=== PATIENT | female | born 1945 | race Caucasian/White ===

== ENCOUNTER 2017-03-18 11:48 | Emergency (ER) | payer BC ==
[~2017-03-18] VITALS: Ht 154.9 cm; Wt 47.9 kg
[2017-03-18 11:52] VITALS: TEMP 36.5; Ht 154.9 cm; Wt 47.9 kg
--- NOTE | 2017-03-18 12:16 | EMERGENCY ROOM VISIT NOTE ---
History First contact with patient: 11:58 Chief Complaint: LEG PAIN,LEG INJURY Stated Complaint: PAIN IN RIGHT LEG-CONCERN OF A BLOOD CLOT History of Present Illness The patient is a 71 year old female who presents to the Emergency Room via private vehicle accompanied by with complaints of "pain in right leg, concern of a blood clot". The patient states that a few days ago she developed a burning/throbbing sensation on the medial aspect of the right leg. She states that at times she will get a stabbing sensation in the right anterior thigh, and also some calf pain. She denies any chest pain, shortness of breath , fevers, chills, recent falls, trauma, hormone use, smoking, or recent long travel. She notes that her mother did however though past away from a pulmonary embolism. Review of Systems A complete 10-point Review of Systems was discussed with the patient, with pertinent positives and negatives listed in the History of Present Illness. All remaining Review of Systems questions can be considered negative unless otherwise specified. Past Medical/Surgical History No pertinent. Family History Mother with pulmonary embolism. Social History Smoking Status: Never Smoker Patient lives locally with family. Current/Historical Medications Scheduled Cholecalciferol (Vitamin D3), 1 TAB PO DAILY Probiotic Product (Probiotic), 1 CAP PO DAILY Physical Exam Vital Signs Date Time Temp Pulse Resp B/P (MAP) Pulse Ox O2 Delivery O2 Flow Rate FiO2 03/18/17 14:43 88 16 147/72 98 Room Air 03/18/17 13:28 82 20 115/76 100 Room Air 03/18/17 11:52 36.5 106 20 187/78 100 Room Air Physical Exam VITAL SIGNS - Vital signs and nursing notes were reviewed. Afebrile, hypertensive at 187/78, tachycardic at 10 6 bpm, and is saturating well on room air 100%. GENERAL -71-year-old female appearing her stated age who is in no acute distress. Communicates well with provider and answers questions appropriately. SKIN - Without rashes. No petechial rashes. The skin overlying the right leg is unremarkable. HEAD - NC/AT. LUNGS - Chest wall symmetric without accessory muscle use, intercostals retractions, or central cyanosis. Normal vesicular breath sounds CTA B/L. No wheezes, rales, or rhonchi appreciated. CARDIAC - RRR with S1/S2. No murmur, rubs, or gallops appreciated. EXTREMITIES - No clubbing or peripheral cyanosis. No pretibial edema present. She is neurovascularly intact in the right lower extremity. Positive Homans sign. +5/5 strength noted in UE/LE bilaterally. Medical Decision & Procedures ER Provider Diagnostic Interpretation: RIGHT VENOUS DOPP LOWER EXT UNILAT CLINICAL HISTORY: 71 years-old Female presenting with Right lower leg pain, medial aspect Right. TECHNIQUE: Real-time grayscale and color and spectral Doppler ultrasound imaging of the veins of the right lower extremity was performed. Compression and augmentation were also utilized. COMPARISON: None. FINDINGS: Right: Common femoral vein: Patent. Femoral vein: Patent. Greater saphenous vein: Patent. Popliteal vein: Patent. Calf veins: Patent. Other: None. IMPRESSION: No evidence of deep venous thrombosis. Electronically signed by: Huan Goldsmith M.D. 03/18/2017 1:07 PM Dictated Date/Time: 03/18/2017 1:07 PM RIGHT FEMUR 2 VIEWS ROUTINE CLINICAL HISTORY: 71 years-old Female presenting with Right leg pain, no trauma Right. TECHNIQUE: Frontal and lateral views of the right femur were obtained. COMPARISON: None. FINDINGS: Right hip joint congruent. Knee and hip joints congruent. No acute fracture or subluxation. No osseous destruction. Atherosclerosis. Calcified uterine fibroid. Pelvic phleboliths. IMPRESSION: No acute osseous injury of the right femur. Electronically signed by: Huan Goldsmith M.D. 03/18/2017 2:12 PM Dictated Date/Time: 03/18/2017 2:11 PM Laboratory Results 03/18/17 12:24 Red Blood Count 4.38, Mean Corpuscular Volume 97.3, Mean Corpuscular Hemoglobin 32.0, Mean Corpuscular Hemoglobin Concent 32.9, Mean Platelet Volume 10.0, Neutrophils (%) (Auto) 56.4, Lymphocytes (%) (Auto) 32.1, Monocytes (%) (Auto) 9.9, Eosinophils (%) (Auto) 1.1, Basophils (%) (Auto) 0.4, Neutrophils # (Auto) 4.59, Lymphocytes # (Auto) 2.62, Monocytes # (Auto) 0.81, Eosinophils # (Auto) 0.09, Basophils # (Auto) 0.03 03/18/17 12:24 Test 03/18/17 12:24 9/17/17 12:48 White Blood Count 8.15 K/uL (4.8-10.8) Red Blood Count 4.38 M/uL (4.2-5.4) Hemoglobin 14.0 g/dL (12.0-16.0) Hematocrit 42.6 % (37-47) Mean Corpuscular Volume 97.3 fL (80-100) Mean Corpuscular Hemoglobin 32.0 pg (25-34) Mean Corpuscular Hemoglobin Concent 32.9 g/dl (32-36) Platelet Count 376 K/uL (130-400) Mean Platelet Volume 10.0 fL (7.4-10.4) Neutrophils (%) (Auto) 56.4 % Lymphocytes (%) (Auto) 32.1 % Monocytes (%) (Auto) 9.9 % Eosinophils (%) (Auto) 1.1 % Basophils (%) (Auto) 0.4 % Neutrophils # (Auto) 4.59 K/uL (1.4-6.5) Lymphocytes # (Auto) 2.62 K/uL (1.2-3.4) Monocytes # (Auto) 0.81 K/uL (0.11-0.59) Eosinophils # (Auto) 0.09 K/uL (0-0.5) Basophils # (Auto) 0.03 K/uL (0-0.2) RDW Standard Deviation 45.3 fL (36.4-46.3) RDW Coefficient of Variation 12.7 % (11.5-14.5) Immature Granulocyte % (Auto) 0.1 % Immature Granulocyte # (Auto) 0.01 K/uL (0.00-0.02) Prothrombin Time 10.3 SECONDS (9.0-12.0) Prothromb Time International Ratio 1.0 (0.9-1.1) Activated Partial Thromboplast Time 25.3 SECONDS (21.0-31.0) Partial Thromboplastin Ratio 1.0 Est Creatinine Clear Calc Drug Dose 43.7 ml/min Estimated GFR () 75.6 Estimated GFR (Non- 65.2 BUN/Creatinine Ratio 15.8 (10-20) Calcium Level 9.3 mg/dl (8.5-10.1) Total Bilirubin 0.6 mg/dl (0.2-1) Aspartate Amino Transf (AST/SGOT) 14 U/L (15-37) Alanine Aminotransferase (ALT/SGPT) 22 U/L (12-78) Alkaline Phosphatase 61 U/L (45-117) Total Creatine Kinase 133 U/L (26-192) Creatine Kinase MB 1.5 ng/ml (0.5-3.6) Creatine Kinase MB Ratio 1.1 (0-3.0) Total Protein 8.1 gm/dl (6.4-8.2) Albumin 4.1 gm/dl (3.4-5.0) Globulin 4.0 gm/dl (2.5-4.0) Albumin/Globulin Ratio 1.0 (0.9-2) Bedside Hemoglobin 15.0 g/dl (12.0-16.0) Bedside Hematocrit 44 % (37-47) Bedside Sodium 140 mEq/L (135-144) Bedside Potassium 3.7 mEq/L (3.3-5.0) Bedside Chloride 104 mEq/L (101-112) Bedside Total CO2 24 mEq/l (24-31) Anion Gap 17.0 mmol/L (16-25) Bedside Blood Urea Nitrogen 14 mg/dl (7-18) Bedside Creatinine 0.8 mg/dl (0.6-1.3) Bedside Glucose (other) 106 mg/dl (70-99) Bedside Ionized Calcium (Billy) 1.21 mmol/l (1.12-1.32) Medical Decision Patient was seen and evaluated as above. After obtaining a thorough history and physical examination I was quickly concerned she may have a DVT. Blood work was initiated as well as DVT of the right lower extremity. Ultrasound results as above. No acute DVT. CBC reveals no leukocytosis or anemia. Coags unremarkable. Metabolic workup was also unremarkable. No evidence of kidney or liver failure. X-rays were also obtained to rule out bony pathology and these were found to be negative. Incidental's were discussed with the patient and she was provided printed copies of the x-rays. She is to follow-up with her family doctor. She is to return with worsening. I suspect she is likely sprinting muscle cramp and joint degeneration. She was educated upon worrisome symptoms in which to return, had questions answered prior to discharge, and was discharged home in good condition. She was also seen and evaluated by the attending physician. She is to follow up regarding elevated blood pressure. Her medication list was reviewed by myself. In evaluation treatment this patient the following differential diagnoses were entertained: DVT, muscle spasm, electrolyte abnormality, among others. Impression Primary Impression: Leg pain, right Departure Information Dispostion Home / Self-Care Condition GOOD Referrals No Doctor, Assigned (PCP) Patient Instructions My [facility] Additional Instructions You were seen in the emergency Department for right leg pain. Ultrasound/ x- rays have ruled out blood clot and fracture. Your blood work today looks good. I do recommend follow-up with your family doctor regarding today's visit. Please return to the emergency department with any new/concerning symptoms.
[2017-03-18 12:40] LABS: BASO % 0.4 %; BASO ABS # 0.03 K/uL (0-0.2); COMPLETE YES; EOS % 1.1 %; HEMATOCRIT 42.6 % (37-47); IG% 0.1 %; LYMPH % 32.1 %; LYMPH ABS # 2.62 K/uL (1.2-3.4); MEAN CELL VOLUME 97.3 fL (80-100); MEAN CORPUSCULAR HGB CONC 32.9 g/dl (32-36); MONO % 9.9 %; NEUT % 56.4 %; PLATELET COUNT 376 K/uL (130-400); RED BLOOD COUNT 4.38 M/uL (4.2-5.4); WHITE BLOOD COUNT 8.15 K/uL (4.8-10.8)
[2017-03-18] MEDS ORDERED: CHOL1000 PO (12:45)
[2017-03-18] MEDS ORDERED: MISCCAP80 PO (12:45)
[2017-03-18 12:52] LABS: PROTHROMBIN TIME (PATIENT) 10.3 SECONDS (9.0-12.0)
[2017-03-18 12:58] LABS: BUN/CREATININE RATIO 15.8 (10-20); CALCIUM 9.3 mg/dl (8.5-10.1); CREATININE 0.89 mg/dl (0.60-1.20); POTASSIUM 3.7 mmol/L (3.5-5.1)
[2017-03-18 13:03] LABS: CKMB/CK RATIO 1.1 (0-3.0)
--- NOTE | 2017-03-18 13:08 | DIAGNOSTIC IMAGING REPORT ---
RIGHT VENOUS DOPP LOWER EXT UNILAT CLINICAL HISTORY: 71 years-old Female presenting with Right lower leg pain, medial aspect Right. TECHNIQUE: Real-time grayscale and color and spectral Doppler ultrasound imaging of the veins of the right lower extremity was performed. Compression and augmentation were also utilized. COMPARISON: None. FINDINGS: Right: Common femoral vein: Patent. Femoral vein: Patent. Greater saphenous vein: Patent. Popliteal vein: Patent. Calf veins: Patent. Other: None. IMPRESSION: No evidence of deep venous thrombosis. Electronically signed by: Huan Goldsmith M.D. 03/18/2017 1:07 PM Dictated Date/Time: 03/18/2017 1:07 PM
--- NOTE | 2017-03-18 14:13 | DIAGNOSTIC IMAGING REPORT ---
RIGHT TIBIA/FIBULA 2 VIEWS ROUTINE CLINICAL HISTORY: 71 years-old Female presenting with Right leg pain, no trauma Right. TECHNIQUE: Frontal and lateral views of the right lower leg were obtained. COMPARISON: None. FINDINGS: Knee joint and ankle mortise grossly congruent. No abnormal sclerosis or osseous destruction is radiographically evident. No acute fracture or subluxation. Regional soft tissues normal. IMPRESSION: No acute osseous injury of the right lower leg. Electronically signed by: Huan Goldsmith M.D. 03/18/2017 2:11 PM Dictated Date/Time: 03/18/2017 2:11 PM
--- NOTE | 2017-03-18 14:14 | DIAGNOSTIC IMAGING REPORT ---
RIGHT FEMUR 2 VIEWS ROUTINE CLINICAL HISTORY: 71 years-old Female presenting with Right leg pain, no trauma Right. TECHNIQUE: Frontal and lateral views of the right femur were obtained. COMPARISON: None. FINDINGS: Right hip joint congruent. Knee and hip joints congruent. No acute fracture or subluxation. No osseous destruction. Atherosclerosis. Calcified uterine fibroid. Pelvic phleboliths. IMPRESSION: No acute osseous injury of the right femur. Electronically signed by: Huan Goldsmith M.D. 03/18/2017 2:12 PM Dictated Date/Time: 03/18/2017 2:11 PM
[2017-03-18 14:22] LABS: ISTAT CREATININE 0.8 mg/dl (0.6-1.3); ISTAT IONIZED CALCIUM 1.21 mmol/l (1.12-1.32)
--- NOTE | 2017-03-18 14:25 | EMERGENCY ROOM VISIT NOTE ---
ED Visit Note First contact with patient: 11:58 This Patient was discussed with the physician server service assistant, Len Reed PA-C. The pertinent historical and physical exam findings were confirmed. I agree with the studies ordered and with the interpretations of these studies. I agree with the disposition and care plan.
[2017-03-18 14:43] VITALS: BP 147/72; PULSE 88; O2SAT 98
== END 2017-03-18 14:44 | disposition home or self-care (01) ==
LOC: C.EDB 11:50 → C.EDD 14:44
DX: M79.604 Pain in right leg (principal); Z83.2 Family history of diseases of the blood and blood-forming organs and certain disorders involving the immune mechanism; R00.0 Tachycardia, unspecified

== ENCOUNTER 2018-08-28 09:24 | Observation (INO) ==
[2018-08-28 11:52] LABS: Basophils # (auto) 0.01 K/uL (0-0.2); Basophils % (auto) 0.1 %; Eosinophils # (auto) 0.02 K/uL (0-0.5); Eosinophils % (auto) 0.1 %; Hematocrit (blood only) 41.3 % (37-47); Hemoglobin 13.7 g/dL (12.0-16.0); Immature Granulocytes # (auto) 0.09 K/uL (0.00-0.02); Immature Granulocytes % (auto) 0.5 %; Lymphocytes # (auto) 1.15 K/uL (1.2-3.4); Lymphocytes % (auto) 6.9 %; Mean Corpuscular Hgb Conc 33.2 g/dL (32-36); Mean Corpuscular Volume 98.1 fL (80-100); Mean Platelet Volume 9.6 fL (7.4-10.4); Monocytes # (auto) 1.12 K/uL (0.11-0.59); Monocytes % (auto) 6.8 %; Neutrophils # (auto) 14.18 K/uL (1.4-6.5); Neutrophils % (auto) 85.6 %; Platelet Count 354 K/uL (130-400); RDW Coefficient of Variation 13.6 % (11.5-14.5); RDW Standard Deviation 48.5 fL (36.4-46.3); Red Blood Count 4.21 M/uL (4.2-5.4); White Blood Count 16.57 K/uL (4.8-10.8)
[2018-08-28 12:14] LABS: Alanine Aminotransferase 30 U/L (12-78); Albumin Level 3.4 gm/dl (3.4-5.0); Aspartate Aminotransferase 21 U/L (15-37); BUN Creatinine Ratio 25.7 (10-20); Blood Urea Nitrogen 20 mg/dl (7-18); Calcium 8.6 mg/dl (8.5-10.1); Carbon Dioxide 27 mmol/L (21-32); Chloride 104 mmol/L (98-107); Est GFR (African American) 89.4; Est GFR (Non-African American) 77.1; Glucose 98 mg/dl (70-99); Potassium 4.2 mmol/L (3.5-5.1); Sodium 136 mmol/L (136-145)
[2018-08-28 12:16] LABS: Acetaminophen < 2 ug/ml (10-30); Salicylate < 1.7 mg/dl (2.8-20)
[2018-08-28 12:24] LABS: Albumin Globulin Ratio 0.9 (0.9-2); Alkaline Phosphatase 58 U/L (45-117); Bilirubin,Total 0.8 mg/dl (0.2-1); Globulin 3.8 gm/dl (2.5-4.0); Total Protein 7.2 gm/dl (6.4-8.2)
[2018-08-28] MEDS ORDERED: OLANZAPINE ZYDIS 10 MG ORALLY DIS. TAB PO STA (12:28)
--- NOTE | 2018-08-28 12:40 | XRay Report ---
XR thoracic spine 3V routine, XR lumbar spine 2-3V HISTORY: 72 years-old Female pain acute mid and low back pain without known injury COMPARISON: CT abdomen and pelvis 05/22/2018, chest CT 04/23/2018 TECHNIQUE: 3 views of the thoracic spine and 3 views of the lumbar spine FINDINGS: THORACIC: Demineralized appearance of the bones. 40% anterior endplate compression deformity of the T12 vertebr al body without significant retropulsion is age indeterminate, however new from comparison study. The upper thoracic segments are suboptimally visualized secondary to patient positioning. The remaining thoracic segments appear intact and alignment is satisfactory with mild multilevel intervertebral dis c space narrowing, facet arthrosis and spondylitic spurring. Soft tissues appear unremarkable. No acu te rib fracture notified. LUMBAR: Demineralized appearance of the bones. 5 nonrib-bearing lumbar type vertebral segments are present. N o acute fracture or subluxation identified. Mild multilevel intervertebral disc space narrowing with facet arthrosis and mild spondylitic spurring. Calcification of the aorta. Soft tissues are unremarka ble. 4.5 cm calcified lesion about the right hemipelvis is unchanged from comparison CT and may refle ct a calcified fibroid. IMPRESSION: Age-indeterminate 40% anterior plate compression deformity of the T12 vertebral body without signific ant retropulsion is new from 05/22/2018 suggestive of acute or subacute fracture. Correlate with poin t tenderness and patient history. The above report was generated using voice recognition software. It may contain grammatical, syntax o r spelling errors. Electronically signed by: Rafi Ventura M.D. 08/28/2018 12:39 PM
--- NOTE | 2018-08-28 12:40 | XRay Report ---
XR chest 1V portable CLINICAL HISTORY: chest pain COMPARISON STUDY: Chest CT April 23, 2018 and chest radiograph May 22, 2018. FINDINGS: There is no pneumothorax or pleural effusion. No airspace opacities are identified. There i s no evidence for pulmonary edema. There are possible nondisplaced fractures of the anterolateral rig ht ninth and 10th ribs. There may also be a displaced fracture of the anterior left ninth rib as well as a minimally displaced fracture the anterior left 10th rib. IMPRESSION: Possible bilateral 9th and 10th rib fractures, as described above. No pneumothorax. Electronically signed by: Gordon Greenfield M.D. 08/28/2018 12:39 PM
[2018-08-28 12:42] LABS: T4 Free Thyroxine 1.21 ng/dl (0.8-1.6)
--- NOTE | 2018-08-28 14:11 | CT Scan Report ---
CT head/brain wo con CT DOSE: 537.48 mGy.cm HISTORY: Mental status change ams TECHNIQUE: Multiaxial CT images of the head were performed without the use of intravenous contrast. A dose lowering technique was utilized adhering to the principles of ALARA. Comparison: 04/21/2018 Findings: The paranasal sinuses and mastoid air cells are clear. The calvarium and skull base are int act. The ventricles and sulci are within normal limits. There is no mass, hematoma, midline shift, or acute infarct. Age-related atrophy and chronic small vessel change Impression: Age-related atrophy and chronic small vessel change. No acute process. The above report was generated using voice recognition software. It may contain grammatical, syntax or spelling errors. Electronically signed by: Jeb Cabrera M.D. 08/28/2018 2:10 PM
[2018-08-28 14:34] LABS: Appearance Urine Clear (Clear); Bilirubin Urine Negative (Negative); Blood Urine Negative (Negative); Color Urine Yellow; Glucose Urine UA 2+ (Negative); Ketones Urine Negative (Negative); Leukocyte Esterase Urine Negative (Negative); Nitrite Urine Negative (Negative); Protein Urine Negative (Negative); Specific Gravity Urine 1.023 (1.000-1.030); Urobilinogen Urine Negative (Negative); pH Urine 7.5 (4.5-7.5)
--- NOTE | 2018-08-28 15:25 | Emergency Department Note ---
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 progression of her symptoms I am suspicious for a component of vascular dementia. The patient's finding on x-ray office of aging contacted given full investigation for safety is warranted. Office of aging arrived to evaluate patient and petition was placed for guardianship which was approved. Subsequent emergency placement pending. Case s/o to Dr. Phillip at change of shift. Impression & Plan Confusion, T12 compression fracture, Fracture of multiple ribs of both sides Discharge Plan Visit Data *Final* Discharge Date/Time: 08/29/18 03:40 Chief Complaint: Back Injury/Pain ED Provider: Yan Lentz Discharge Problem: Confusion, T12 compression fracture, Fracture of multiple ribs of both sides Patient Disposition: Admitted As Inpatient Discharge Instructions Interventions: ED Discharge Assessment Last Done: 08/29/18 03:40 Discharge Problem: Fracture of multiple ribs of both sides Qualifiers: Encounter type: initial encounter Fracture type: closed Qualified Code(s): S22.43XA - Multiple fractures of ribs, bilateral, initial encounter for closed fracture The scribe's documentation has been prepared under my direction and personally reviewed by me in its entirety. I confirm that the note above accurately reflects all work, treatment, procedures, and medical decision making performed by me.
[2018-08-28 15:28] LABS: Amphetamines+Metham, Urine Neg (Neg); Barbiturates, Urine Neg (Neg); Benzodiazepine, Urine Neg (Neg); Cocaine, Urine Neg (Neg); MDMA (Ecstacy), Urine Neg (Neg); Methadone, Urine Neg (Neg); Opiate, Urine Neg (Neg); Phencyclidine, Urine Neg (Neg)
[2018-08-28] MEDS ORDERED: LORazepam 1 MG TAB SL STA (21:16)
[2018-08-28] MEDS ORDERED: LORazepam 2 MG/ML VIAL (IM USE) IM STA (21:41)
--- NOTE | 2018-08-29 02:45 | History & Physical Report ---
Date of Service August 29, 2018 Assessment & Plan (1) T12 compression fracture: Possible bilateral rib fractures ? Possible falls at home from ambulatory dysfunction hypertension, slight elevated mood disorder/psychosis as per records Suboptimal OBS GMF analgesia Zyprexa as needed agitation for now Psych consult RE psychosis Fall precautions PT OT eval DVT prophylaxis. Lovenox subcu Full code Plan of care discussed with patient's son, Mr. Eduar Weaver (contact #[phone]) as patient's (Mr. Tito Weaver, contact numbers [phone]) could not be reached at the time of encounter. History of Present Illness Chief Complaint: Back pain Primary Care Provider: Dr. Morin History obtained from patient, family, and records. Limited history from patient secondary to psychotic state. Medical history significant for hypertension, psychosis as per records, mood disorder, IBS. [facility] for major depressive disorder with catatonia. As per family, the last few months patient noted by family to have steady decline in mentation/functionality. Patient having trouble with activities of daily living, very restless as per patient's son. Patient talking to people that are not in the house as per patient's . Unclear if patient has had recent follow-up with her psychiatrist. Yesterday patient noted mid back pain after patient heard a pop. No falls, no chest pain, no S OB, no incontinence, no LE weakness. IV Ativan given at the ER for episodic agitation. Patient brought to the emergency room by . does not feel he can take care of patient at home in her current state as per ER provider. Patient repeatedly stating "I [place]." Allergies Allergy/AdvReac Type Severity Reaction Status Date / Time lincomycin Allergy Unknown HIVES Verified 08/28/18 10:35 nitrofurantoin Allergy Unknown HIVES Verified 08/28/18 10:35 Sulfa (Sulfonamide Allergy Unknown HIVES Verified 08/28/18 10:35 Antibiotics) Home Medications Home Medications Medication Instructions Recorded Confirmed Type lisinopril 10 mg DAILY 08/28/18 08/28/18 History metoprolol succinate 25 mg PO DAILY 08/28/18 08/28/18 History Past Med/Surg History Medical History HTN (hypertension) (Chronic) JORGE (generalized anxiety disorder) (Chronic) . IBS (irritable bowel syndrome) (Chronic) Bronchitis (Inactive) Pneumonia (Inactive) Stomach problems (Inactive) UTI (urinary tract infection) (Inactive) Surgical History H/O dilation and curettage (Chronic) Previous section x2 Family History Sister Diabetes Father Liver cancer Mother CHF (congestive heart failure) Daughter Bipolar disorder Daughter Depression Social History Communication Ability: Effective Current Living Situation: Spouse Current Living Situation Comment: ED note reflects no longer feels he can care for patient at home Feels Safe at Home: Declines to Answer Smoking Status: Unknown if ever smoked Physical Exam Vital Signs (Past 24 Hours): Last Vital Signs Pulse 91 H 08/28/18 21:00 Resp 17 08/28/18 21:00 BP 139/58 L 08/28/18 21:00 Pulse Ox 100 08/28/18 21:00 Results & Data Laboratory Results Laboratory Results WBC 16.57 K/uL (4.8-10.8) H 08/28/18 11:35 RBC 4.21 M/uL (4.2-5.4) 08/28/18 11:35 Hgb 13.7 g/dL (12.0-16.0) 08/28/18 11:35 Hct 41.3 % (37-47) 08/28/18 11:35 MCV 98.1 fL (80-100) 08/28/18 11:35 MCH 32.5 pg (25-34) 08/28/18 11:35 MCHC 33.2 g/dL (32-36) 08/28/18 11:35 RDW Std Deviation 48.5 fL (36.4-46.3) H 08/28/18 11:35 RDW Coeff of Belkis 13.6 % (11.5-14.5) 08/28/18 11:35 Plt Count 354 K/uL (130-400) 08/28/18 11:35 MPV 9.6 fL (7.4-10.4) 08/28/18 11:35 Immature Gran % (Auto) 0.5 % 08/28/18 11:35 Neut % (Auto) 85.6 % 08/28/18 11:35 Lymph % (Auto) 6.9 % 08/28/18 11:35 [place] % (Auto) 6.8 % 08/28/18 11:35 Eos % (Auto) 0.1 % 08/28/18 11:35 Baso % (Auto) 0.1 % 08/28/18 11:35 Immature Gran # (Auto) 0.09 K/uL (0.00-0.02) H 08/28/18 11:35 Neut # (Auto) 14.18 K/uL (1.4-6.5) H 08/28/18 11:35 Lymph # (Auto) 1.15 K/uL (1.2-3.4) L 08/28/18 11:35 [place] # (Auto) 1.12 K/uL (0.11-0.59) H 08/28/18 11:35 Eos # (Auto) 0.02 K/uL (0-0.5) 08/28/18 11:35 Baso # (Auto) 0.01 K/uL (0-0.2) 08/28/18 11:35 Sodium 136 mmol/L (136-145) 08/28/18 11:35 Potassium 4.2 mmol/L (3.5-5.1) 08/28/18 11:35 Chloride 104 mmol/L (98-107) 08/28/18 11:35 Carbon Dioxide 27 mmol/L (21-32) 08/28/18 11:35 Anion Gap 5.0 (3-11) 08/28/18 11:35 BUN 20 mg/dl (7-18) H 08/28/18 11:35 Creatinine 0.77 mg/dl (0.6-1.2) 08/28/18 11:35 Est Cr Clr Drug Dosing Not Reportable 08/28/18 11:35 Est GFR ( Amer) 89.4 08/28/18 11:35 Est GFR (Non-Af Amer) 77.1 08/28/18 11:35 BUN/Creatinine Ratio 25.7 (10-20) H 08/28/18 11:35 Glucose 98 mg/dl (70-99) 08/28/18 11:35 Calcium 8.6 mg/dl (8.5-10.1) 08/28/18 11:35 Total Bilirubin 0.8 mg/dl (0.2-1) 08/28/18 11:35 AST 21 U/L (15-37) 08/28/18 11:35 ALT 30 U/L (12-78) 08/28/18 11:35 Alkaline Phosphatase 58 U/L (45-117) 08/28/18 11:35 Total Protein 7.2 gm/dl (6.4-8.2) 08/28/18 11:35 Albumin 3.4 gm/dl (3.4-5.0) 08/28/18 11:35 Globulin 3.8 gm/dl (2.5-4.0) 08/28/18 11:35 Albumin/Globulin Ratio 0.9 (0.9-2) 08/28/18 11:35 TSH 5.740 uIu/ml (0.300-4.500) H 08/28/18 11:35 Free T4 1.21 ng/dl (0.8-1.6) 08/28/18 11:35 Urine Color Yellow 08/28/18 14:12 Urine Appearance Clear (Clear) 08/28/18 14:12 Urine pH 7.5 (4.5-7.5) 08/28/18 14:12 Ur Specific [place] 1.023 (1.000-1.030) 08/28/18 14:12 Urine Protein Negative (Negative) 08/28/18 14:12 Urine Glucose (UA) 2+ (Negative) H 08/28/18 14:12 Urine Ketones Negative (Negative) 08/28/18 14:12 Urine Blood Negative (Negative) 08/28/18 14:12 Urine Nitrite Negative (Negative) 08/28/18 14:12 Urine Bilirubin Negative (Negative) 08/28/18 14:12 Urine Urobilinogen Negative (Negative) 08/28/18 14:12 Ur Leukocyte Esterase Negative (Negative) 08/28/18 14:12 Salicylates < 1.7 mg/dl (2.8-20) L 08/28/18 11:35 Urine Opiates Screen Neg (Neg) 08/28/18 14:12 Ur Methadone, Qual Neg (Neg) 08/28/18 14:12 Acetaminophen < 2 ug/ml (10-30) L 08/28/18 11:35 Urine Barbiturates Neg (Neg) 08/28/18 14:12 Ur Phencyclidine (PCP) Neg (Neg) 08/28/18 14:12 U Amphetamin/Meth Scrn Neg (Neg) 08/28/18 14:12 MDMA (Ecstasy) Screen Neg (Neg) 08/28/18 14:12 U Benzodiazepines Scrn Neg (Neg) 08/28/18 14:12 Ur Cocaine Metabolite Neg (Neg) 08/28/18 14:12 U Marijuana (THC) Screen Neg (Neg) 08/28/18 14:12 Ethyl Alcohol mg/dL < 3.0 mg/dl (0-3) 08/28/18 11:[address] head: Age-related atrophy Thoracic spine, lumbar x-ray : Age-indeterminate 40% anterior plate compression deformity of the T12 vertebral body without significant retropulsion is new from 05/22/2018 suggestive of acute or subacute fracture. Correlate with point tenderness and patient history. Chest x-ray: Possible bilateral 9th and 10th rib fractures, as described above. No pneumothorax.
[2018-08-29 03:29] LABS: Basophils # (auto) 0.01 K/uL (0-0.2); Basophils % (auto) 0.2 %; Eosinophils # (auto) 0.09 K/uL (0-0.5); Eosinophils % (auto) 1.4 %; Hematocrit (blood only) 37.1 % (37-47); Hemoglobin 12.2 g/dL (12.0-16.0); Immature Granulocytes # (auto) 0.02 K/uL (0.00-0.02); Immature Granulocytes % (auto) 0.3 %; Lymphocytes # (auto) 1.45 K/uL (1.2-3.4); Lymphocytes % (auto) 21.8 %; Mean Corpuscular Hgb Conc 32.9 g/dL (32-36); Mean Corpuscular Volume 98.4 fL (80-100); Mean Platelet Volume 10.1 fL (7.4-10.4); Monocytes # (auto) 0.83 K/uL (0.11-0.59); Monocytes % (auto) 12.5 %; Neutrophils # (auto) 4.25 K/uL (1.4-6.5); Neutrophils % (auto) 63.8 %; Platelet Count 283 K/uL (130-400); RDW Coefficient of Variation 13.9 % (11.5-14.5); RDW Standard Deviation 49.9 fL (36.4-46.3); Red Blood Count 3.77 M/uL (4.2-5.4); White Blood Count 6.65 K/uL (4.8-10.8)
[2018-08-29] MEDS ORDERED: PROCHLORPERAZINE 5 MG in SYRINGE 4 ML IV PRN (03:56)
[2018-08-29] MEDS ORDERED: OLANZapine 10 MG/2.1 ML SDV IM PRN (03:56)
[2018-08-29] MEDS ORDERED: ACETAMINOPHEN 325 MG TAB PO PRN (03:56)
[2018-08-29] MEDS ORDERED: KETOROLAC TROMETHAMINE 15 MG/ML VIAL IV PRN (03:56)
[2018-08-29] MEDS ORDERED: SODIUM CHLORIDE 0.9% 1000ML 1,000 ML IV STA (03:56)
[2018-08-29] MEDS ORDERED: IBUPROFEN 200 MG TAB PO PRN (03:56)
--- NOTE | 2018-08-29 04:29 | Emergency Department Note ---
ED Visit Note ED Physician Sign Out Note: 72 yr old female signed out to me by Dr Miller who had received her in sign out from Dr Vidal. Patient with dementia and failure to thrive at home who is being cared for by her , yet due to worsening condition office of aging invovled and reportedly they have taken custody of her. After signout to me I evaluated her and she was sleeping. Reveiw of chart consistent with rib fractures, thoracic fracture. She was attempted apparently throughout the day (over lat 17 hours) to place her. It is clear that this is not going to be a quick process and thus I do not feel that an elderly demented patient with no clear disposition should continue to remain in ED for remainder of her stay as she will clearly need placement. I reviewed case with Dr Pruett who will bring patient in for further management and likely placement, especially given the uncertainty of POA at this time. Of note, there is no family nor contact here in the ED during this time. Yan Lentz MD : Fracture of multiple ribs of both sides Qualifiers: Encounter type: initial encounter Fracture type: closed Qualified Code(s): S22.43XA - Multiple fractures of ribs, bilateral, initial encounter for closed fracture
[2018-08-29 04:35] LABS: Partial Thromboplastin Ratio 0.9; Partial Thromboplastin Time 24.2 Seconds (21.0-31.0)
[2018-08-29 04:36] LABS: BUN Creatinine Ratio 20.4 (10-20); Calcium 8.4 mg/dl (8.5-10.1); Creatinine Clr Calc Pharmacy 48.3 ml/min; Est GFR (African American) 98.6; Est GFR (Non-African American) 85.1; Magnesium 2.3 mg/dl (1.8-2.4)
[2018-08-29 04:42] LABS: Prothrombin Time 10.7 Seconds (9.0-12.0)
[2018-08-29] MEDS ORDERED: LISINOPRIL 10 MG TAB PO SCH (09:00)
[2018-08-29] MEDS: LIDOCAINE 5% 1 PATCH TD SCH (09:23)
[2018-08-29] MEDS: LISINOPRIL 10 MG TAB PO SCH (09:23)
[2018-08-29] MEDS: METOPROLOL SUCC 25MG EXT REL TAB PO SCH (09:23)
[2018-08-29] MEDS: ENOXAPARIN INJ 30 MG/0.3 ML SYR SQ SCH (09:23)
--- NOTE | 2018-08-29 11:50 | Consultation Report ---
DATE OF CONSULTATION: 08/29/2018 ORTHOPEDIC SPINE CONSULTATION CHIEF COMPLAINT: T12 osteoporotic compression fracture. HISTORY OF PRESENT ILLNESS: New was visited by me on rounds here today. She communicated poorly. She was either in a bout of psychosis or confusion, or combination of both. Her at the bedside was equally distraught on the telephone, I could not get much history, they were preoccupied. She does have a T12 compression fracture secondary to fall at home. PAST MEDICAL HISTORY: Hypertension, psychosis, mood disorder. Over the last several months noticed by the family, she has had a steady decline of her functionality and mentation, having trouble with activities of daily living. It has been quite difficult for her and and family. Yesterday as of the , she noticed some mid back pain after she heard a pop. She was brought to the Emergency Room with a compression fracture. PAST SURGICAL HISTORY: Includes prior and a D and C. FAMILY HISTORY: Diabetes. SOCIAL HISTORY: Nonsmoker, nonalcohol user. OBJECTIVE: GENERAL: She is responsive to pain. Alert. VITAL SIGNS: Pulse regular. Blood pressure control 140/60. Slight leukocytosis with a white cell count of 16.57. She is not anemic. She has pain with percussion with no neurological deficits and fairly rigid at bedside. It was taught to mobilize the patient. X-rays demonstrate a T12 compression fracture. ASSESSMENT: T12 compression fracture. PLAN: Includes a brace for support, nonsurgical means followup. I will order for some physical therapy and a back brace for support.
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
[2018-08-29] MEDS ORDERED: risperiDONE ODT 0.5 MG SOLTAB PO SCH (21:00)
[2018-08-29 22:53] VITALS: BP 157/77; PULSE 116; TEMP 97.9; O2SAT 97
[2018-08-30] MEDS: ESCITALOPRAM OXALATE ORAL SOLN 5 MG/5 ML UDP PO SCH ×2 (08:44→09:40)
[2018-08-30] MEDS: LIDOCAINE 5% 1 PATCH TD SCH (08:45)
[2018-08-30] MEDS: ENOXAPARIN INJ 30 MG/0.3 ML SYR SQ SCH (08:45)
[2018-08-30] MEDS: LISINOPRIL 10 MG TAB PO SCH (09:39)
[2018-08-30] MEDS: METOPROLOL SUCC 25MG EXT REL TAB PO SCH (09:39)
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
--- NOTE | 2018-09-02 13:47 | Communication Note ---
Date of Service: September 02, 2018 Called by lab regarding positive blood culture with gram-positive bacilli in 1 of 2 blood cultures. These were drawn 08/29 and it is now 09/02. This is likely contaminant. Will discuss with infectious disease. Will await speciation. DO Hair.
== END 2018-08-30 11:40 ==
LOC: ED 09:24 → 4E 09:24 → MERGE 09:24 → 4E 08-29 03:40

== ENCOUNTER 2022-07-20 14:05 | Inpatient (IN) ==
[2022-07-20] MEDS ORDERED: ONDANSETRON INJ 2 MG/ML 2 ML VIAL IV STA (14:17)
[2022-07-20] MEDS ORDERED: SODIUM CHLORIDE 0.9% 1000ML 1,000 ML IV ONE (15:28)
--- NOTE | 2022-07-20 15:39 | Emergency Department Note ---
Impression & Plan Aspiration pneumonia of right lower lobe due to vomit, Leukocytosis, Acute dehydration, Lactic acidosis ED Provider Note Name: JUANI MITCHELL Age: 76 Sex: F Arrives Via: Walk-In Informant: Patient (poor historian), ED Provider: Yan Lentz MD Chief Complaint: Weakness Impression: As per impressions above Medical Decision Makin-year-old female arrives for evaluation of generalized weakness following episodes of vomiting. Patient has a long psychiatric history and previous episodes of catatonia and appears to have reentered this at this time. She did have an episode of vomiting today x2 along with some diarrhea. Since then she has been lying on the floor and essentially catatonic other than some weak movements and periodic responses to yes or no. She has no actual neurologic deficits by exam she has no evidence or history of head injury and she is clearly able to track around the room with her eyes. I am not convinced that emergent neuroimaging is necessary. She is now a bit tachycardic and I am concerned about infection. She has not had any further vomiting and her abdomen is soft nondistended. A KUB of the abdomen does not reveal any obvious obstruction and with a soft abdomen and not convinced CT imaging is necessary at this time. A chest x-ray does reveal a right lower lobe infiltrate. Given her vomiting her elevated white blood cell count, I do feel that this is likely consistent with an aspiration pneumonia. In the setting of the white blood cell count elevation and tachycardia she may be septic. She was given a 30/kg IV bolus normal saline, blood cultures were obtained lactic was sent and she was given empiric antibiotics, Unasyn for management. Lactic acid did return mildly elevated though not above 4. She is not persistently hypotensive. Not think that pressors are necessary. On repeat volume status exam her heart rate has come down nicely and she is otherwise stable. I do not feel further fluids were necessary at this time. Given her catatonia the early possible sepsis I feel that hospitalist evaluation is reasonable and they brought her in for further management. Prior Medical Record and Triage/Nursing Notes reviewed by Me Outpatient records and previous hospitalization records reviewed by me. Differentials:Infection, dehydration, aspiration, bowel obstruction, cardiac, intracranial hemorrhage, stroke, sepsis, psychiatric, many other pathologies considered Vital Signs: reviewed and remarkable for tachy Interventions: Normal saline bolus 1 L IV, normal saline bolus 500 mL IV, Unasyn 3 g IV, Zofran 4 mg IV Labs:Reviewed and remarkable for elevated white blood cell count elevated lact ic acid Imagin view chest x-ray interpreted by me reveals right lower lobe infiltrate. 1 view KUB interpreted by me reveals no overt obstruction EKG: As per my interpretation. Indication weakness.sinus tachycardia at 116 bpm and a QTC of 439. There is no STEMI nor ectopy. There is diffuse anterior lateral ST depressions which are new from an EKG of January 23 2019. Cardiac/Tele Monitoring: Cardiac Monitoring: An Order was placed for continuous cardiac monitoring. The monitor shows a rate of 110 with a sinus tach rhythm. Consults:Dr Terrie PAIZ Hospitalist Plan: Disposition:Hospitalization. Condition: Fair History of Present Illness:76-year-old female arrives for evaluation of weakness. Patient apparently with some diarrhea this morning and not feeling overly well. She did eat and a small breakfast and vomited. Shortly thereafter she weakly collapsed to the ground. She did not fall or hit her head. She had no syncope. Her was at her side and helped her to the floor. Since then she has been essentially catatonic. She does get these catatonic episodes periodically. Is attempted to get her to eat a few more times including a half a banana which she vomited back up. No medications prior to arrival. Nothing seems make better or worse. Patient is not willing to talk about what is going on. Unable to do review of systems or get much more history from the patient. denies any recent head injuries. He notes she is usually able to ambulate several miles a day with him. He denies knowing any other symptoms that she has been having. Allergies:Lincomycin, nitrofurantoin, sulfa Vitals:Blood Pressure: 142/67, Pulse 117, RR 20, T 37.1C, O2 94% on RA Physical Exam: GENERAL: Patient is dehydrated appearing and in no distress. EYES: No scleral icterus, unremarkable pupils. ENT: Mucous membranes dry, no nasal congestion. NECK: No masses appreciated, nomeningismus, trachea is midline. RESPIRATORY: Mild dyspnea with crackles bilateral lung sounds CARDIOVASCULAR: Tachy.No murmurs, rubs, gallops appreciated. GASTROINTESTINAL: Abdomen soft, non-tender, no peritonitis.Bowel sounds positive.No masses appreciated. EXTREMITIES: Normal motion all extremities, no cyanosis, no edema. NEUROLOGIC: Awake alert but not talking other than simple yes or no at times, weakly moves arms and legs SKIN: No rash, no jaundice, no diaphoresis. PSYCH: Distant, flat affect, minimal interaction other than looking around and periodic yes/no GCS: 15 ED Course: Times/Reassessments: Heart rate much improved, repeat exam consistent with well- hydrated patient though patient continues to be in somewhat catatonic state and is agreeable to hospitalization Yan Lentz MD Past Med/Surg History Medical History (Updated 07/21/22 @ 12:26 by HILL Freitas) Abdominal pain Abnormal urinalysis Bronchitis Chest pain Confusion Decreased responsiveness Dementia DVT prophylaxis Elevated TSH Fracture of multiple ribs of both sides JORGE (generalized anxiety disorder) . HTN (hypertension) IBS (irritable bowel syndrome) Major depressive disorder, recurrent episode, severe with catatonia Pneumonia Pulmonary nodules Stomach problems T12 compression fracture UTI (urinary tract infection) Surgical History H/O dilation and curettage Previous section x2 Family History Sister Diabetes Father Liver cancer Mother CHF (congestive heart failure) Daughter Bipolar disorder Daughter Depression Social History Smoking Status: Never smoker Hx Alcohol Use: No Hx Substance Use: No Preferred Language: [place]ican Communication Ability: catatonic Communication Ability Comment: answers a few questions but refuses to answer most Visual Impairment: No Limitations Hearing Ability: Normal Puzzle Assembler Required: No Beliefs That Will Affect Care: None marital status: Current Living Situation: Spouse Current Living Situation Comment: ED note reflects no longer feels he can care for patient at home current occupational status: retired Other Information That Helps Us Care for You: No Feels Safe at Home: Yes Safety Concerns: Feels Safe At This Time Assistive Devices: None Allergies Allergies Allergy/AdvReac Type Severity Reaction Status Date / Time lincomycin Allergy Unknown HIVES Verified 07/20/22 18:21 nitrofurantoin Allergy Unknown HIVES Verified 07/20/22 18:21 Sulfa (Sulfonamide Allergy Unknown HIVES Verified 07/20/22 18:21 Antibiotics) Home Meds Home Medications Medication Instructions Recorded Confirmed galantamine 12 mg tablet 12 mg PO BID 07/20/22 07/20/22 lorazepam 0.5 mg tablet 0.5 mg PO QID 07/20/22 07/20/22 Results & Data (ED) Vital Signs Vital Signs - 24 hr 07/20/22 14:14 07/20/22 15:49 07/20/22 15:41 Temperature 37.1 C Temperature Source Temporal Artery Scan Pulse Rate 117 H 110 H Pulse Rate [Apical] 110 H Pulse Rate from SpO2 Sensor 110 H Pulse Rhythm Regular Pulse Rhythm [Apical] Regular Pulse Strength Normal Pulse Strength [Apical] Normal Respiratory Rate 20 20 24 Respiratory Effort / Characteristics Non-Labored Spontaneous Non-Labored Spontaneous Respiratory Depth Normal Normal Respiratory Pattern Regular Regular Blood Pressure 142/67 H Blood Pressure [Right Arm] 158/68 H Blood Pressure Mean 92 Blood Pressure Mean [Right Arm] 98 Blood Pressure Position Sitting Pulse Oximetry 94 99 97 Oxygen Delivery Method Room Air Room Air Sepsis Recent Fever Within 48 Hours No Sepsis New/Unexplained Change in Mental Status No Sepsis Action Taken by Nursing No Action Required 07/20/22 15:46 07/20/22 15:46 07/20/22 15:50 Temperature Temperature Source Pulse Rate 109 H 112 H Pulse Rate [Apical] Pulse Rate from SpO2 Sensor 108 H 112 H Pulse Rhythm Pulse Rhythm [Apical] Pulse Strength Pulse Strength [Apical] Respiratory Rate 24 24 Respiratory Effort / Characteristics Respiratory Depth Respiratory Pattern Blood Pressure 158/68 H Blood Pressure [Right Arm] Blood Pressure Mean 98 Blood Pressure Mean [Right Arm] Blood Pressure Position Pulse Oximetry 95 97 Oxygen Delivery Method Sepsis Recent Fever Within 48 Hours Sepsis New/Unexplained Change in Mental Status Sepsis Action Taken by Nursing 07/20/22 16:00 07/20/22 16:01 07/20/22 16:01 Temperature Temperature Source Pulse Rate 116 H 115 H Pulse Rate [Apical] Pulse Rate from SpO2 Sensor Pulse Rhythm Pulse Rhythm [Apical] Pulse Strength Pulse Strength [Apical] Respiratory Rate 24 25 H Respiratory Effort / Characteristics Respiratory Depth Respiratory Pattern Blood Pressure 153/84 H Blood Pressure [Right Arm] Blood Pressure Mean 107 Blood Pressure Mean [Right Arm] Blood Pressure Position Pulse Oximetry Oxygen Delivery Method Sepsis Recent Fever Within 48 Hours Sepsis New/Unexplained Change in Mental Status Sepsis Action Taken by Nursing 07/20/22 16:10 07/20/22 16:15 07/20/22 16:15 Temperature Temperature Source Pulse Rate 116 H 123 H Pulse Rate [Apical] Pulse Rate from SpO2 Sensor Pulse Rhythm Pulse Rhythm [Apical] Pulse Strength Pulse Strength [Apical] Respiratory Rate 24 24 Respiratory Effort / Characteristics Respiratory Depth Respiratory Pattern Blood Pressure 175/106 H Blood Pressure [Right Arm] Blood Pressure Mean 129 Blood Pressure Mean [Right Arm] Blood Pressure Position Pulse Oximetry Oxygen Delivery Method Sepsis Recent Fever Within 48 Hours Sepsis New/Unexplained Change in Mental Status Sepsis Action Taken by Nursing 07/20/22 16:20 07/20/22 16:30 07/20/22 16:30 Temperature Temperature Source Pulse Rate 121 H 109 H Pulse Rate [Apical] Pulse Rate from SpO2 Sensor Pulse Rhythm Pulse Rhythm [Apical] Pulse Strength Pulse Strength [Apical] Respiratory Rate 24 23 Respiratory Effort / Characteristics Respiratory Depth Respiratory Pattern Blood Pressure 138/73 Blood Pressure [Right Arm] Blood Pressure Mean 94 Blood Pressure Mean [Right Arm] Blood Pressure Position Pulse Oximetry Oxygen Delivery Method Sepsis Recent Fever Within 48 Hours Sepsis New/Unexplained Change in Mental Status Sepsis Action Taken by Nursing 07/20/22 16:40 07/20/22 16:45 07/20/22 16:45 Temperature Temperature Source Pulse Rate 110 H 109 H Pulse Rate [Apical] Pulse Rate from SpO2 Sensor Pulse Rhythm Pulse Rhythm [Apical] Pulse Strength Pulse Strength [Apical] Respiratory Rate 21 24 Respiratory Effort / Characteristics Respiratory Depth Respiratory Pattern Blood Pressure 148/81 H Blood Pressure [Right Arm] Blood Pressure Mean 103 Blood Pressure Mean [Right Arm] Blood Pressure Position Pulse Oximetry Oxygen Delivery Method Sepsis Recent Fever Within 48 Hours Sepsis New/Unexplained Change in Mental Status Sepsis Action Taken by Nursing 07/20/22 16:50 07/20/22 17:00 07/20/22 17:00 Temperature Temperature Source Pulse Rate 113 H 109 H Pulse Rate [Apical] Pulse Rate from SpO2 Sensor Pulse Rhythm Pulse Rhythm [Apical] Pulse Strength Pulse Strength [Apical] Respiratory Rate 22 20 Respiratory Effort / Characteristics Respiratory Depth Respiratory Pattern Blood Pressure 149/74 H Blood Pressure [Right Arm] Blood Pressure Mean 99 Blood Pressure Mean [Right Arm] Blood Pressure Position Pulse Oximetry 96 Oxygen Delivery Method Sepsis Recent Fever Within 48 Hours Sepsis New/Unexplained Change in Mental Status Sepsis Action Taken by Nursing 07/20/22 17:10 07/20/22 17:15 07/20/22 17:15 Temperature Temperature Source Pulse Rate 102 H 107 H Pulse Rate [Apical] Pulse Rate from SpO2 Sensor Pulse Rhythm Pulse Rhythm [Apical] Pulse Strength Pulse Strength [Apical] Respiratory Rate 24 22 Respiratory Effort / Characteristics Respiratory Depth Respiratory Pattern Blood Pressure 143/74 H Blood Pressure [Right Arm] Blood Pressure Mean 97 Blood Pressure Mean [Right Arm] Blood Pressure Position Pulse Oximetry Oxygen Delivery Method Sepsis Recent Fever Within 48 Hours Sepsis New/Unexplained Change in Mental Status Sepsis Action Taken by Nursing 07/20/22 17:20 07/20/22 17:30 07/20/22 17:40 Temperature Temperature Source Pulse Rate 103 H 110 H 103 H Pulse Rate [Apical] Pulse Rate from SpO2 Sensor Pulse Rhythm Pulse Rhythm [Apical] Pulse Strength Pulse Strength [Apical] Respiratory Rate 24 20 23 Respiratory Effort / Characteristics Respiratory Depth Respiratory Pattern Blood Pressure Blood Pressure [Right Arm] Blood Pressure Mean Blood Pressure Mean [Right Arm] Blood Pressure Position Pulse Oximetry Oxygen Delivery Method Sepsis Recent Fever Within 48 Hours Sepsis New/Unexplained Change in Mental Status Sepsis Action Taken by Nursing 07/20/22 17:45 07/20/22 17:45 Temperature Temperature Source Pulse Rate 106 H Pulse Rate [Apical] Pulse Rate from SpO2 Sensor Pulse Rhythm Pulse Rhythm [Apical] Pulse Strength Pulse Strength [Apical] Respiratory Rate 20 Respiratory Effort / Characteristics Respiratory Depth Respiratory Pattern Blood Pressure 128/72 Blood Pressure [Right Arm] Blood Pressure Mean 90 Blood Pressure Mean [Right Arm] Blood Pressure Position Pulse Oximetry Oxygen Delivery Method Sepsis Recent Fever Within 48 Hours Sepsis New/Unexplained Change in Mental Status Sepsis Action Taken by Nursing Laboratory Data 07/20/22 15:43 07/20/22 15:43 Lab Results 07/20/22 07/20/22 07/20/22 Range/Units 15:43 15:43 15:43 WBC 15.75 H (4.8-10.8) K/ul RBC 4.19 (3.93-5.22) M/uL Hgb 13.7 (12.0-16.0) g/dl Hct 41.3 (34.1-44.9) % MCV 98.6 (80.0-100.0) fL MCH 32.7 (25.0-34.0) pg MCHC 33.2 (32.0-36.0) g/dL RDW Std Deviation 44.5 (36.4-46.3) fL RDW Coeff of Belkis 12.3 (11.5-14.5) % Plt Count 321 (130-400) K/uL MPV 9.8 (9.4-12.3) fL Immature Gran % (Auto) 0.3 % Neut % (Auto) 93.3 % Lymph % (Auto) 2.5 % [place] % (Auto) 3.7 % Eos % (Auto) 0.0 % Baso % (Auto) 0.2 % Neut # (Auto) 14.68 H (1.4-6.5) K/uL Lymph # (Auto) 0.40 L (1.2-3.4) K/uL [place] # (Auto) 0.59 (0.24-0.82) K/uL Eos # (Auto) 0.00 (0-0.50) K/uL Baso # (Auto) 0.03 (0-0.2) K/uL Immature Gran # (Auto) 0.05 H (0.00-0.02) K/uL Sodium 140 (136-145) mmol/L Potassium 4.2 (3.5-5.1) mmol/L Chloride 104 (98-107) mmol/L Carbon Dioxide 26 (21-32) mmol/L Anion Gap 10 (3-11) BUN 18 (6-23) mg/dl Creatinine 0.79 (0.6-1.2) mg/dl Est Cr Clr Drug Dosing Not Reportable Est GFR ( Amer) 84.3 ml/min Est GFR (Non-Af Amer) 72.7 ml/min BUN/Creatinine Ratio 22.8 H (10-20) Glucose 168 H (70-99(Fasting)) mg/dl Lactate (0.4-2.0) mmol/L Calcium 9.3 (8.5-10.1) mg/dl Phosphorus 3.2 (2.5-4.9) mg/dl Magnesium 1.8 (1.7-2.4) mg/dl Total Bilirubin 0.9 (0.2-1.0) mg/dl AST 16 (13-39) U/L ALT 13 (7-52) U/L Alkaline Phosphatase 42 (34-104) U/L Total Creatine Kinase 79 (26-192) U/L Troponin I High Sens 9.5 (0-14) pg/ml Total Protein 7.2 (6.0-8.3) gm/dl Albumin 4.2 (3.4-5.0) gm/dl Globulin 3.0 (2.5-4.0) gm/dl Albumin/Globulin Ratio 1.4 (0.9-2) Lipase 23 (11-82) U/L Procalcitonin (0-0.5) ng/ml SARS-CoV-2 (PCR) (Negative) Influenza Type A (PCR) (Neg) Influenza Type B (PCR) (Neg) RSV (RT-PCR) (Neg) 07/20/22 07/20/22 07/20/22 Range/Units 15:43 15:43 16:53 WBC (4.8-10.8) K/ul RBC (3.93-5.22) M/uL Hgb (12.0-16.0) g/dl Hct (34.1-44.9) % MCV (80.0-100.0) fL MCH (25.0-34.0) pg MCHC (32.0-36.0) g/dL RDW Std Deviation (36.4-46.3) fL RDW Coeff of Belkis (11.5-14.5) % Plt Count (130-400) K/uL MPV (9.4-12.3) fL Immature Gran % (Auto) % Neut % (Auto) % Lymph % (Auto) % [place] % (Auto) % Eos % (Auto) % Baso % (Auto) % Neut # (Auto) (1.4-6.5) K/uL Lymph # (Auto) (1.2-3.4) K/uL [place] # (Auto) (0.24-0.82) K/uL Eos # (Auto) (0-0.50) K/uL Baso # (Auto) (0-0.2) K/uL Immature Gran # (Auto) (0.00-0.02) K/uL Sodium (136-145) mmol/L Potassium (3.5-5.1) mmol/L Chloride (98-107) mmol/L Carbon Dioxide (21-32) mmol/L Anion Gap (3-11) BUN (6-23) mg/dl Creatinine (0.6-1.2) mg/dl Est Cr Clr Drug Dosing Est GFR ( Amer) ml/min Est GFR (Non-Af Amer) ml/min BUN/Creatinine Ratio (10-20) Glucose (70-99(Fasting)) mg/dl Lactate 2.2 H* (0.4-2.0) mmol/L Calcium (8.5-10.1) mg/dl Phosphorus (2.5-4.9) mg/dl Magnesium (1.7-2.4) mg/dl Total Bilirubin (0.2-1.0) mg/dl AST (13-39) U/L ALT (7-52) U/L Alkaline Phosphatase (34-104) U/L Total Creatine Kinase (26-192) U/L Troponin I High Sens (0-14) pg/ml Total Protein (6.0-8.3) gm/dl Albumin (3.4-5.0) gm/dl Globulin (2.5-4.0) gm/dl Albumin/Globulin Ratio (0.9-2) Lipase (11-82) U/L Procalcitonin 0.28 (0-0.5) ng/ml SARS-CoV-2 (PCR) NEGATIVE (Negative) Influenza Type A (PCR) Negative (Neg) Influenza Type B (PCR) Negative (Neg) RSV (RT-PCR) Negative (Neg) Administered Medications Enoxaparin Sodium (Enoxaparin Inj 40 Mg/0.4 Ml Syr) 40 mg SQ Q24H DENIS Stop: 08/19/22 21:29 Last Admin: 07/21/22 00:31 Dose: 40 mg Documented By: ELIDA Miscellaneous (Galantamine~Order Awaiting Action) 1 each N/A QS [facility] Stop: 08/20/22 00:00 Last Admin: 07/21/22 08:54 Dose: Not Given Documented By: [facility] [place] Admin: 07/21/22 00:31 Dose: Not Given Documented By: ELIDA Discontinued Medications Sodium Chloride (Nss 1000ml) 1,000 mls @ 999 mls/hr IV .Q1H1M ONE Stop: 07/20/22 16:28 Last Infusion: 07/20/22 16:59 Dose: 0 mls/hr Documented By: Admin: 07/20/22 15:48 Dose: 999 mls/hr Documented By: ARGENIS Ampicillin Sodium/Sulbactam Sodium 3,000 mg/ Sodium Chloride 108 mls @ 200 mls/hr IV NOW STA; Protocol Stop: 07/20/22 17:09 Last Infusion: 07/20/22 17:55 Dose: 0 mls/hr Documented By: Admin: 07/20/22 17:22 Dose: 200 mls/hr Documented By: ARGENIS Sodium Chloride (Nss 1000ml) 500 mls @ 999 mls/hr IV .Q31M ONE Stop: 07/20/22 17:07 Last Infusion: 07/20/22 17:32 Dose: 0 mls/hr Documented By: Admin: 07/20/22 16:59 Dose: 999 mls/hr Documented By: ARGENIS Lactated Ringer's (Lr) 1,000 mls @ 100 mls/hr IV .Q10H DENIS Stop: 08/19/22 19:14 Last Admin: 07/21/22 06:25 Dose: 100 mls/hr Documented By: Infusion: 07/21/22 06:24 Dose: 100 mls/hr Documented By: Admin: 07/20/22 21:09 Dose: 100 mls/hr Documented By: ELIDA Ampicillin Sodium/Sulbactam Sodium 1,500 mg/ Sodium Chloride 104 mls @ 200 mls/hr IV Q6H DENIS; Protocol Stop: 07/28/22 00:59 Last Infusion: 07/21/22 07:10 Dose: 0 mls/hr Documented By: Admin: 07/21/22 06:31 Dose: 200 mls/hr Documented By: Infusion: 07/21/22 02:30 Dose: 0 mls/hr Documented By: Admin: 07/21/22 01:45 Dose: 200 mls/hr Documented By: ELIDA Lorazepam (Lorazepam 0.5 Mg Tab) 0.5 mg PO QID DENIS Stop: 08/20/22 08:59 Last Admin: 07/21/22 09:10 Dose: 0.5 mg Documented By: MANDI Ondansetron HCl (Ondansetron Inj 2 Mg/Ml 2 Ml Vial) 4 mg IV NOW STA Stop: 07/20/22 14:18 Last Admin: 07/20/22 15:48 Dose: 4 mg Documented By: ARGENIS Imaging Data Radiologist's Impression: Chest X-Ray 07/20/22 15:28 XR chest 1V portable CLINICAL HISTORY: near syncope TECHNIQUE: Single frontal radiograph of the chest was obtained. Comparison: Comparison is made to chest radiograph 01/23/2019 FINDINGS: No lines and tubes are seen. The aorta is tortuous. The remainder of the cardiomediastinal silhouette is unremarkable. Faint airspace opacities are in the right lower lung. No evidence of pleural effusion or pneumothorax. IMPRESSION: Faint airspace opacities are the right lower lung which may represent atelectasis, pneumonia, and/or aspiration. ACT 112: Negative or not required by law. Electronically signed by: Tanner Madrid M.D. 07/20/2022 4:16 PM KUB X-Ray 07/20/22 15:28 XR KUB/Abdomen 1 view CLINICAL HISTORY: vomiting TECHNIQUE: 1 view of the abdomen was obtained. Comparison: None available at the time of this dictation. FINDINGS: A calcified fibroid is seen. Degenerative changes are seen in the visualized skeleton. The bowel gas pattern is nonobstructive. No significant stool burden was visualized. IMPRESSION: Nonobstructive bowel gas pattern. ACT 112: Negative or not required by law. Electronically signed by: Tanner Madrid M.D. 07/20/2022 4:16 PM Discharge Plan Visit Data Chief Complaint: Illness Stated Complaint: VOMITING, DIARRHEA, CANT STAND ED Provider: Yan Lentz Discharge Problem: Aspiration pneumonia of right lower lobe due to vomit, Leukocytosis, Acute dehydration, Lactic acidosis Patient Disposition: Admitted As Inpatient Discharge Instructions Interventions: ED Discharge Assessment Last Done: 07/20/22 20:04 : Leukocytosis Qualifiers: Leukocytosis type: unspecified Qualified Code(s): D72.829 - Elevated white blood cell count, unspecified
[2022-07-20 16:14] LABS: Hematocrit (blood only) 41.3 % (34.1-44.9); Hemoglobin 13.7 g/dl (12.0-16.0); Mean Corpuscular Hemoglobin 32.7 pg (25.0-34.0); Mean Corpuscular Hgb Conc 33.2 g/dL (32.0-36.0); Mean Corpuscular Volume 98.6 fL (80.0-100.0); Mean Platelet Volume 9.8 fL (9.4-12.3); Platelet Count 321 K/uL (130-400); RDW Coefficient of Variation 12.3 % (11.5-14.5); RDW Standard Deviation 44.5 fL (36.4-46.3); Red Blood Count 4.19 M/uL (3.93-5.22); White Blood Count 15.75 K/ul (4.8-10.8)
--- NOTE | 2022-07-20 16:17 | XRay Report ---
XR chest 1V portable CLINICAL HISTORY: near syncope TECHNIQUE: Single frontal radiograph of the chest was obtained. Comparison: Comparison is made to chest radiograph 01/23/2019 FINDINGS: No lines and tubes are seen. The aorta is tortuous. The remainder of the cardiomediastinal silhouette is unremarkable. Faint airspace opacities are in the right lower lung. No evidence of pleural effusi on or pneumothorax. IMPRESSION: Faint airspace opacities are the right lower lung which may represent atelectasis, pneumonia, and/or aspiration. ACT 112: Negative or not required by law. Electronically signed by: Tanner Madrid M.D. 07/20/2022 4:16 PM
--- NOTE | 2022-07-20 16:18 | XRay Report ---
XR KUB/Abdomen 1 view CLINICAL HISTORY: vomiting TECHNIQUE: 1 view of the abdomen was obtained. Comparison: None available at the time of this dictation. FINDINGS: A calcified fibroid is seen. Degenerative changes are seen in the visualized skeleton. The bowel gas pattern is nonobstructive. No significant stool burden was visualized. IMPRESSION: Nonobstructive bowel gas pattern. ACT 112: Negative or not required by law. Electronically signed by: Tanner Madrid M.D. 07/20/2022 4:16 PM
[2022-07-20 16:32] LABS: Basophils # (auto) 0.03 K/uL (0-0.2); Basophils % (auto) 0.2 %; Immature Granulocytes # (auto) 0.05 K/uL (0.00-0.02); Immature Granulocytes % (auto) 0.3 %; Lymphocytes % (auto) 2.5 %; Monocytes # (auto) 0.59 K/uL (0.24-0.82); Monocytes % (auto) 3.7 %; Neutrophils # (auto) 14.68 K/uL (1.4-6.5); Neutrophils % (auto) 93.3 %
[2022-07-20] MEDS ORDERED: AMPICILLIN/SULBACTAM SOD 3,000 MG in 0.9 % SODIUM CHLORIDE 100 ML IV STA (16:37)
[2022-07-20] MEDS ORDERED: SODIUM CHLORIDE 0.9% 1000ML 500 ML IV ONE (16:37)
[2022-07-20 16:40] LABS: Troponin I High Sensitivity 9.5 pg/ml (0-14)
[2022-07-20 16:51] LABS: Influenza A virus by PCR Negative (Neg); Influenza B virus by PCR Negative (Neg); RSV by PCR Negative (Neg); SARS CoV2 RNA(COVID-19) Ceph NEGATIVE (Negative)
[2022-07-20 17:02] LABS: Magnesium 1.8 mg/dl (1.7-2.4)
[2022-07-20 17:03] LABS: Albumin Level 4.2 gm/dl (3.4-5.0); Anion Gap 10 (3-11); Bilirubin,Total 0.9 mg/dl (0.2-1.0); Calcium 9.3 mg/dl (8.5-10.1); Carbon Dioxide 26 mmol/L (21-32); Chloride 104 mmol/L (98-107); Potassium 4.2 mmol/L (3.5-5.1); Sodium 140 mmol/L (136-145)
[2022-07-20 17:08] LABS: Phosphorus 3.2 mg/dl (2.5-4.9)
[2022-07-20 17:09] LABS: BUN Creatinine Ratio 22.8 (10-20); Blood Urea Nitrogen 18 mg/dl (6-23); Est GFR (African American) 84.3 ml/min; Est GFR (Non-African American) 72.7 ml/min; Glucose 168 mg/dl (70-99(Fasting))
[2022-07-20 17:36] LABS: Alanine Aminotransferase 13 U/L (7-52); Albumin Globulin Ratio 1.4 (0.9-2); Alkaline Phosphatase 42 U/L (34-104); Aspartate Aminotransferase 16 U/L (13-39); Lipase 23 U/L (11-82); Total Protein 7.2 gm/dl (6.0-8.3)
--- NOTE | 2022-07-20 17:42 | History & Physical Report ---
Date of Service July 20, 2022 Assessment & Plan (1) Aspiration pneumonia of right lower lobe due to vomit: Plan: - Patient presented with weakness following several episodes of nonbloody emesis at home. - WBC 15, lactate 2.2, Pro-Vasquez 3.28. CXR with faint airspace opacities in the right lower lung, most likely aspiration pneumonia given history. - Empirically treat with Unasyn. (2) Acute dehydration: Plan: - Patient appears dry on exam, lactate 2.2, however suspect more likely due to acute dehydration. KUB ordered given reports of vomiting, showed nonobstructive gas pattern. - Patient's abdomen is soft, not complaining of any abdominal pain at this time. Do not think any additional imaging or workup is warranted at this time, however continue to monitor for worsening symptoms. No emesis since arrival in ED. - Continue LRs 100 cc/hour, continue to trend lactate to ensure downtrend. (3) Dementia: Plan: - Continue galantamine. (4) Major depressive disorder, recurrent episode, severe with catatonia: Plan: - Per chart review, she has a history of catatonic episodes, only medication is Ativan. - Continue Ativan 0.5 mg QID, psych consulted regarding catatonia. (5) JORGE (generalized anxiety disorder): Plan: - As above. Plan - Admit to med/surg. - SCDs for VTE ppx. - Full Code. History of Present Illness Chief Complaint: weakness, vomiting x 1 day Primary Care Provider: NO PCP [place] is a 76-year-old female with past medical history significant for generalized anxiety disorder and major depressive disorder disorder with history of episodes of catatonia, and dementia who is presenting today for weakness. Patient is very guarded at bedside and provides very limited history. She states she has been feeling weak due to vomiting over the past couple days but denies any fever, chills, abdominal pain, nausea, diarrhea, constipation, melena, hematochezia. She feels she has been eating well and drinking well but sometimes food does come back up after eating. Patient did not report this today, but per ED provider she did feel so weak today that she collapsed to the ground, but did not lose consciousness or hit her head. Since the episode, she has been in a catatonic state per this often happens where she will not move or speak. At baseline, patient is physically capable of walking several miles a day which she does often with her . On exam, the patient does not appear to be in any distress. Vital signs remarkable for tachycardia to the 100s, BP mildly hypertensive 145/79, afebrile and not hypoxic. Labs notable for White count of 15 with left shift, lactate 2.2, procalcitonin 0.28. No electrolyte abnormalities, CK 79, renal function at baseline, without LFT elevation. COVID/flu/RSV negative. CXR shows faint airspace opacities in the right lower lung, KUB shows nonobstructive bowel gas pattern. Allergies Allergy/AdvReac Type Severity Reaction Status Date / Time lincomycin Allergy Unknown HIVES Verified 07/20/22 18:21 nitrofurantoin Allergy Unknown HIVES Verified 07/20/22 18:21 Sulfa (Sulfonamide Allergy Unknown HIVES Verified 07/20/22 18:21 Antibiotics) Home Medications Medication Instructions Recorded Confirmed Type galantamine 12 mg tablet 12 mg PO BID 07/20/22 07/20/22 History lorazepam 0.5 mg tablet 0.5 mg PO QID 07/20/22 07/20/22 History Past Med/Surg History Medical History Abdominal pain Abnormal urinalysis Bronchitis Chest pain Confusion Decreased responsiveness Dementia DVT prophylaxis Elevated TSH Fracture of multiple ribs of both sides JORGE (generalized anxiety disorder) . HTN (hypertension) IBS (irritable bowel syndrome) Major depressive disorder, recurrent episode, severe with catatonia Pneumonia Pulmonary nodules Stomach problems T12 compression fracture UTI (urinary tract infection) Surgical History H/O dilation and curettage Previous section x2 Family History Sister Diabetes Father Liver cancer Mother CHF (congestive heart failure) Daughter Bipolar disorder Daughter Depression Social History Smoking Status: Never smoker Preferred Language: Kyrgyz Communication Ability: Effective Visual Impairment: No Limitations Hearing Ability: Normal [place]inder[place] Supervisor Required: No Beliefs That Will Affect Care: Shinto Shinto Beliefs: mandaen marital status: Current Living Situation: Spouse Current Living Situation Comment: ED note reflects no longer feels he can care for patient at home current occupational status: retired Feels Safe at Home: Yes Assistive Devices: None Review of Systems Review of Systems: Constitutional: No fever/chills, weakness, fatigue, myalgias, anorexia, night sweats Eyes: No diplopia, no worsening or blurred vision ENT: normal hearing, no trouble swallowing Respiratory: No cough, sputum, dyspnea at rest or on exertion Cardiovascular: No chest pain, tightness or palpitations Abdomen: multiple episodes of nonbloody vomiting today; No pain, nausea, diarrhea or constipation, melena, or hematochezia : Denies dysuria, hematuria, increased urgency/frequency, urinary retention Musculoskeletal: No joint pain, calf pain, swelling Neurologic: No weakness, numbness/tingling, or balance problems Psychiatric: No anxiety or depression Skin: No rash or itch Physical Exam Physical Exam: General: awake, alert, no apparent distress Head: Normocephalic, atraumatic ENT: PERRL, EOMI, no pharyngeal exudate, mucous membranes moist Chest: Clear to auscultation, on room air, no adventitious breath sounds Cardiac: Regular rate and rhythm, no murmur, no JVD, normal peripheral pulses, good capillary refill Abdominal: NABS x 4 quadrants, soft, nontender to palpation, no rebound, guarding or tenderness Extremities: Normal inspection, no peripheral edema or erythema, calfs nontender to palpation Psych: patient is very guarded, minimal eye contact and verbal communication, answering in 1-2 words sentences and sometimes ignoring questions completely Neuro: AAO x 3, strength intact bilaterally and rated 5/5, no motor deficits, speech is clear, no peripheral sensory deficits Skin: no rash or erythema Results & Data Results & Data ([facility]) Vital Signs (Past 12 Hours) Vital Signs Temp Pulse Pulse Resp BP BP Pulse Ox 07/20/22 17:30 110 H 20 07/20/22 17:20 103 H 24 07/20/22 17:15 107 H 22 07/20/22 17:15 143/74 H 07/20/22 17:10 102 H 24 07/20/22 17:00 109 H 20 07/20/22 17:00 149/74 H 07/20/22 16:50 113 H 22 96 07/20/22 16:45 148/81 H 07/20/22 16:45 109 H 24 07/20/22 16:40 110 H 21 07/20/22 16:30 109 H 23 07/20/22 16:30 138/73 07/20/22 16:20 121 H 24 07/20/22 16:15 175/106 H 07/20/22 16:15 123 H 24 07/20/22 16:10 116 H 24 07/20/22 16:01 115 H 25 H 07/20/22 16:01 153/84 H 07/20/22 16:00 116 H 24 07/20/22 15:50 112 H 24 97 07/20/22 15:46 109 H 24 95 07/20/22 15:46 158/68 H 07/20/22 15:41 110 H 24 97 07/20/22 15:49 110 H 20 158/68 H 99 07/20/22 14:14 37.1 C 117 H 20 142/67 H 94 O2 Del Method 07/20/22 17:30 07/20/22 17:20 07/20/22 17:15 07/20/22 17:15 07/20/22 17:10 07/20/22 17:00 07/20/22 17:00 07/20/22 16:50 07/20/22 16:45 07/20/22 16:45 07/20/22 16:40 07/20/22 16:30 07/20/22 16:30 07/20/22 16:20 07/20/22 16:15 07/20/22 16:15 07/20/22 16:10 07/20/22 16:01 07/20/22 16:01 07/20/22 16:00 07/20/22 15:50 07/20/22 15:46 07/20/22 15:46 07/20/22 15:41 07/20/22 15:49 Room Air 07/20/22 14:14 Room Air Laboratory Results Abnormal lab results 07/20/22 07/20/22 07/20/22 Range/Units 15:43 15:43 16:53 WBC 15.75 H (4.8-10.8) K/ul Neut # (Auto) 14.68 H (1.4-6.5) K/uL Lymph # (Auto) 0.40 L (1.2-3.4) K/uL Immature Gran # (Auto) 0.05 H (0.00-0.02) K/uL BUN/Creatinine Ratio 22.8 H (10-20) Glucose 168 H (70-99(Fasting)) mg/dl Lactate 2.2 H* (0.4-2.0) mmol/L Diagnostic Findings Chest X-Ray 07/20/22 15:28 XR chest 1V portable CLINICAL HISTORY: near syncope TECHNIQUE: Single frontal radiograph of the chest was obtained. Comparison: Comparison is made to chest radiograph 01/23/2019 FINDINGS: No lines and tubes are seen. The aorta is tortuous. The remainder of the cardiomediastinal silhouette is unremarkable. Faint airspace opacities are in the right lower lung. No evidence of pleural effusion or pneumothorax. IMPRESSION: Faint airspace opacities are the right lower lung which may represent atel ectasis, pneumonia, and/or aspiration. ACT 112: Negative or not required by law. Electronically signed by: Tanner Madrid M.D. 07/20/2022 4:16 PM KUB X-Ray 07/20/22 15:28 XR KUB/Abdomen 1 view CLINICAL HISTORY: vomiting TECHNIQUE: 1 view of the abdomen was obtained. Comparison: None available at the time of this dictation. FINDINGS: A calcified fibroid is seen. Degenerative changes are seen in the visualized skeleton. The bowel gas pattern is nonobstructive. No significant stool burden was visualized. IMPRESSION: Nonobstructive bowel gas pattern. ACT 112: Negative or not required by law. Electronically signed by: Tanner Madrid M.D. 07/20/2022 4:16 PM ECG Additional Comments: Poor data quality, interpretation may be adversely affected Sinus tachycardia with Premature supraventricular complexes ST & T wave abnormality, consider inferolateral ischemia Abnormal ECG When compared with ECG of 23-JAN-2019 15:35, Premature supraventricular complexes are now Present ST now depressed in Anterior leads T wave inversion now evident in Inferior leads T wave inversion now evident in Lateral leads. Code Status & VTE Plan Code Status Full Code. Supervising Physician Co-Signing Physician Notes Patient seen and examined, chart reviewed, case discussed with Lisa Austin PA-C and I agree with the assessment and plan as above except as otherwise noted above. 76yo F with nonbloody/nonbilious emesis and subsquent transient hypoxia, elevated lactate, elevated procal, and CXR with RLL opacities ?aspiration pna. Pt with withdrawn affect, answers quietly, and offers limited conversation. At bedside denies pain, SI, cough, fever, chills and endorses being at [facility], otherwise minimal spontaneous conversation. Lungs are diminished but clear. HR in regular, mildly tachycardic. Given procal and leukocytosis agree w tx as aspiration PNA. Psychiatric/BH consult placed initially for concerns of depression/catatonia. Pt is withdrawn, with soft affect, and with slow speech prosody and neither endorses nor denies anxiety/depression, does not have waxy flexibility and does respond and follow 1 step commands. Given prior concerns from [facility] CM consulted for assistance in assuring outpt envinroment is safe. Agree with management above. PG Care Time/CCT Total # of Minutes Spent Total Time Spent with Patient: Total time spent is greater than 50% in coordination of care (as documented) at patient's floor/unit and/or counseling patient: Coding Level of Care Code 96030 INT INP/OBS CARE 2MIN Diagnoses Aspiration pneumonia of right lower lobe due to vomit J69.0 Acute dehydration E86.0 Dementia F03.90 Major depressive disorder, recurrent episode, severe with catatonia F33.2; F06.1 JORGE (generalized anxiety disorder) F41.1
[2022-07-20] MEDS ORDERED: ACETAMINOPHEN 325 MG TAB PO PRN (21:05)
[2022-07-20] MEDS ORDERED: ONDANSETRON INJ 2 MG/ML 2 ML VIAL IV PRN (21:05)
[2022-07-20] MEDS ORDERED: POLYETHYLENE (MIRALAX) 17 GM PACK PO PRN (21:05)
[2022-07-20] MEDS: LACTATED RINGER'S 1,000 ML IV SCH (21:09)
[2022-07-21] MEDS: [UNRECOGNIZED DRUG - REMARK] SCH ×4 (00:31→23:34)
[2022-07-21] MEDS: ENOXAPARIN INJ 40 MG/0.4 ML SYR SQ SCH ×2 (00:31→20:56)
[2022-07-21] MEDS: AMPICILLIN/SULBACTAM SOD 1,500 MG in 0.9 % SODIUM CHLORIDE 100 ML IV SCH ×2 (01:45→06:31)
[2022-07-21] MEDS: LACTATED RINGER'S 1,000 ML IV SCH (06:25)
[2022-07-21] MEDS ORDERED: LORazepam 0.5 MG TAB PO SCH (09:00)
[2022-07-21 09:54] LABS: Basophils # (auto) 0.04 K/uL (0-0.2); Basophils % (auto) 0.3 %; Hematocrit (blood only) 31.8 % (34.1-44.9); Hemoglobin 10.7 g/dl (12.0-16.0); Immature Granulocytes # (auto) 0.07 K/uL (0.00-0.02); Immature Granulocytes % (auto) 0.5 %; Lymphocytes # (auto) 1.85 K/uL (1.2-3.4); Mean Corpuscular Hemoglobin 33.1 pg (25.0-34.0); Mean Corpuscular Hgb Conc 33.6 g/dL (32.0-36.0); Mean Corpuscular Volume 98.5 fL (80.0-100.0); Mean Platelet Volume 9.9 fL (9.4-12.3); Monocytes % (auto) 4.6 %; Neutrophils # (auto) 12.71 K/uL (1.4-6.5); Neutrophils % (auto) 82.6 %; Platelet Count 270 K/uL (130-400); RDW Coefficient of Variation 12.6 % (11.5-14.5); RDW Standard Deviation 45.3 fL (36.4-46.3); Red Blood Count 3.23 M/uL (3.93-5.22); White Blood Count 15.37 K/ul (4.8-10.8)
[2022-07-21 10:05] LABS: BUN Creatinine Ratio 17.2 (10-20); Est GFR (African American) 100.5 ml/min; Est GFR (Non-African American) 86.7 ml/min; Magnesium 1.8 mg/dl (1.7-2.4); Potassium 3.8 mmol/L (3.5-5.1)
--- NOTE | 2022-07-21 10:24 | CT Scan Report ---
CT abd pelvis IV con only CLINICAL HISTORY: Oliguria, c/f obstruction TECHNIQUE: Helical axial images of the abdomen and pelvis were obtained and displayed. Automated dose lowering techniques and/or adjustment according to patient size were utilized for this exam. This e xam was performed with intravenous contrast. CT DOSE: 246.54 mGy.cm COMPARISON: Comparison is made to CT abdomen pelvis 05/22/2018 FINDINGS: Lower chest: There is atelectasis versus scarring in the right lung base. Superimposed pneumonia can not be excluded. Liver: Unremarkable. No focal lesions are seen. Gallbladder and biliary tree: No calcified gallstones. Normal caliber wall. No intra- or extrahepatic biliary ductal dilation. Pancreas: Unremarkable, no focal lesions. Spleen: Unremarkable. Adrenals: Unremarkable. Kidneys and ureters: Unremarkable. Bladder: The bladder is markedly distended without bladder wall thickening. Reproductive organs: Prominent calcified fibroid is noted. A right adnexal cyst has enlarged, previou sly measured 44 x 49 mm, now measures 72 x 54 mm. Bowel: A hiatal hernia is seen. Diverticulosis is seen without evidence of diverticulitis. Lymph nodes Retroperitoneal: Unremarkable. Pelvic: Unremarkable. Mesenteric: Unremarkable. Peritoneum: Normal. Vessels: Atherosclerotic calcifications are seen. Abdominal wall: Unremarkable. Bones: Degenerative changes in the visualized spine. IMPRESSION: 1. No evidence of hydronephrosis or other acute abnormality. 2. Diverticulosis without diverticulitis. 3. Marked distention of the bladder. 4. Right adnexal cyst is enlarged from prior exam. 5. Atelectasis in the right lung base. Superimposed pneumonia cannot be excluded. ACT 112: Negative or not required by law. Electronically signed by: Tanner Madrid M.D. 07/21/2022 10:22 AM
[2022-07-21 11:40] LABS: Appearance Urine Clear (Clear); Bacteria Urine Automated Negative (Negative); Bilirubin Urine Negative (Negative); Blood Urine Trace (Negative); Cast Urine Automated 0 /lpf (0-5); Color Urine Yellow; Glucose Urine UA Negative (Negative); Ketones Urine Trace (Negative); Leukocyte Esterase Urine Negative (Negative); Nitrite Urine Negative (Negative); Protein Urine Negative (Negative); RBC Urine Automated 0-4 /hpf (0-4); Specific Gravity Urine 1.038 (1.000-1.030); Urobilinogen Urine Negative (Negative); pH Urine 7.5 (4.5-7.5)
--- NOTE | 2022-07-21 12:13 | Urology Consultation ---
Date of Consultation July 21, 2022 Assessment & Plan (1) Incomplete bladder emptying: Urology consulted for difficult Moran placement. Patient had not voided since arrival - elevated bladder scan noted. Nursing unable to place catheter. CTAP reviewed and noted a markedly distended bladder, no hydronephrosis. She was able to void on toilet afterward, PVR 151 mL. Urine sample sent for culture per nursing. Recommend follow cultures. Recommend avoid Moran catheter placement at this time. Patient has major depression with catatonia. Per , patient needs prompting to use restroom. Recommend timed voiding and ambulate patient to bathroom every 2-4 hours. Bladder scan as needed. If she is unable to void or has elevated post void residuals, then catheter can be placed for urinary retention. will sign off, contact our service with any concerns. History of Present Illness Reason for Consultation: Difficult Moran placement Requesting Physician: Dr. Graham Attending Physician: Freeman Graham MD History of Present Illness This is a 76-year-old female with past medical history significant for hypertension, generalized anxiety disorder, major depressive disorder with history of catatonia, and dementia who presented to the emergency department on 07/20/2022 for weakness. She was admitted to the hospital medicine service for acute dehydration, aspiration pneumonia, and leukocytosis. Urology is consulted for difficult Moran placement. Chart reviewed. She is on Unasyn for aspiration pneumonia. Patient is afebrile. Lab work independently reviewed. Creatinine 0.64, WBC 15.37, hemoglobin 10.7. Patient had not voided since arrival. Bladder scan showed 827 mL. Patient was unable to void on bedpan. Nursing was unable to place a catheters after multiple attempts. CT abdomen pelvis independently reviewed and notable for markedly distended bladder, no hydronephrosis. Arrived at bedside to see patient. She was in the bathroom voiding on toilet upon my arrival. Asked nursing to notify me of amount voided and PVR. Patient voided 425 mL, PVR 151 mL. Patient answers my questions, but does not offer much details or history. She denies pain at present. No dysuria or hematuria. No fever or chills. No nausea or vomiting. Patient's at bedside. He reports she voids about 4 times a day, but he must prompt her to go. He reports she has no urinary complaints at baseline. Never smoker. No known family history of malignancy. reports she had UTIs about 10-15 years ago, but no recent UTIs. No prior urologic evaluations. Allergies Allergy/AdvReac Type Severity Reaction Status Date / Time lincomycin Allergy Unknown HIVES Verified 07/20/22 18:21 nitrofurantoin Allergy Unknown HIVES Verified 07/20/22 18:21 Sulfa (Sulfonamide Allergy Unknown HIVES Verified 07/20/22 18:21 Antibiotics) Home Medications Medication Instructions Recorded Confirmed Type galantamine 12 mg tablet 12 mg PO BID 07/20/22 07/20/22 History lorazepam 0.5 mg tablet 0.5 mg PO QID 07/20/22 07/20/22 History Patient History Medical History (Updated 07/21/22 @ 12:26 by HILL Freitas) Abdominal pain Abnormal urinalysis Bronchitis Chest pain Confusion Decreased responsiveness Dementia DVT prophylaxis Elevated TSH Fracture of multiple ribs of both sides JORGE (generalized anxiety disorder) . HTN (hypertension) IBS (irritable bowel syndrome) Major depressive disorder, recurrent episode, severe with catatonia Pneumonia Pulmonary nodules Stomach problems T12 compression fracture UTI (urinary tract infection) Surgical History H/O dilation and curettage Previous section x2 Family History Sister Diabetes Father Liver cancer Mother CHF (congestive heart failure) Daughter Bipolar disorder Daughter Depression Social History Smoking Status: Never smoker Hx Alcohol Use: No Hx Substance Use: No Preferred Language: Thai Communication Ability: catatonic Communication Ability Comment: answers a few questions but refuses to answer most Visual Impairment: No Limitations Hearing Ability: Normal Surgical Nurse Required: No Beliefs That Will Affect Care: None marital status: Current Living Situation: Spouse Current Living Situation Comment: ED note reflects no longer feels he can care for patient at home current occupational status: retired Other Information That Helps Us Care for You: No Feels Safe at Home: Yes Safety Concerns: Feels Safe At This Time Assistive Devices: None Review of Systems Review of Systems: All systems reviewed & are unremarkable except as noted in HPI & below Physical Exam Constitutional: comfortable; no acute distress Respiratory: normal respiratory effort; no respiratory distress and no labored breathing Cardiovascular: Extremities: no pedal edema Gastrointestinal (Abdomen): Inspection/Auscultation: abdomen normal to inspection; abdomen not distended Musculoskeletal: Head/Neck/Chest: normocephalic and head atraumatic Neurologic: awake Psychiatric: Orientation: oriented to person Affect: + depressed affect and + flat affect Mood: + depressed mood Genitourinary: no CVA tenderness Results & Data ([facility]) Vital Signs (Past 12 Hours) Vital Signs Temp Pulse Pulse Resp BP Pulse Ox O2 Del Method 07/21/22 11:26 Room Air 07/21/22 10:51 36.6 C 77 20 128/66 97 Room Air 07/21/22 07:27 36.8 C 89 18 121/70 96 Room Air 07/21/22 07:24 81 07/21/22 02:49 36.6 C 94 H 18 120/62 95 Room Air PG Care Time/CCT Total # of Minutes Spent Total Time Spent with Patient: Total time spent is greater than 50% in coordination of care (as documented) at patient's floor/unit and/or counseling patient: Coding Level of Care Code 91450 INT INP/OBS CARE 2/55MIN Diagnoses Incomplete bladder emptying R33.9
[2022-07-21] MEDS: AMPICILLIN/SULBACTAM SOD 3,000 MG in 0.9 % SODIUM CHLORIDE 100 ML IV SCH ×2 (13:40→18:41)
[2022-07-21] MEDS: LORazepam 2 MG/1 ML VIAL IV SCH ×2 (13:40→18:40)
--- NOTE | 2022-07-21 14:27 | Hospitalist Progress Note ---
Date of Service July 21, 2022 Assessment & Plan (1) Aspiration pneumonia of right lower lobe due to vomit: Plan: Currently on intravenous Unasyn, day 2. We will repeat chest x-ray tomorrow morning. She is currently on room air. (2) Acute dehydration: Plan: Present on admission. Resolved with IV fluids. (3) Dementia: Plan: Treated with galantamine. The states that she does not have dementia but does have catatonia (4) Major depressive disorder, recurrent episode, severe with catatonia: Plan: Continue current medication management. Psychiatry consultation pending. (5) JORGE (generalized anxiety disorder): Plan: Stable with current benzodiazepine therapy Plan Repeat chest x-ray tomorrow, July 22. Hopefully she can go home with Augmentin suspension. Admission and Anticipated Discharge Date Admission Date: July 20, 2022 Subjective The patient is nonverbal with me. is at the bedside. She has a history of catatonia. Urology consultation noted. She has high bladder volumes but was able to void once she was seated on the toilet. Will avoid Moran catheter placement at this time. She remains on intravenous Unasyn for the suspected right lower lobe aspiration pneumonia. OT and PT assessments requested. Hopefully she can go home tomorrow, July 22 Review of Systems Review of Systems: Unable to assess due to patient not speaking to me Physical Exam Physical Exam: General-awake but nonverbal. She has a history of catatonia. No apparent distress HEENT-head atraumatic and normocephalic, pupils equal and reactive to light, extraocular muscles intact Neck-no lymphadenopathy or thyromegaly, trachea midline Chest-clear to auscultation percussion. No rales, wheezing or rhonchi Cardiac-regular rate and rhythm, normal S1 and S2 Abdomen-normal bowel sounds, nontender, no hepatosplenomegaly Extremities-no cyanosis, clubbing, or edema Neuro-cranial nerves II through XII intact, motor and sensory function within normal limits, strength symmetrical , no focal deficits Psych-depressed affect. Nonverbal with me Results & Data Results & Data ([facility]) Vital Signs (Past 12 Hours) Vital Signs Temp Pulse Pulse Resp BP Pulse Ox O2 Del Method 07/21/22 11:26 Room Air 07/21/22 10:51 36.6 C 77 20 128/66 97 Room Air 07/21/22 07:27 36.8 C 89 18 121/70 96 Room Air 07/21/22 07:24 81 07/21/22 02:49 36.6 C 94 H 18 120/62 95 Room Air Laboratory Results 07/21/22 08:16 07/21/22 08:16 PG Care Time/CCT Total # of Minutes Spent Total Time Spent with Patient: Total time spent is greater than 50% in coordination of care (as documented) at patient's floor/unit and/or counseling patient: Coding Level of Care Code 81965 SUB INP/OBS CARE 3/50MIN Diagnoses Aspiration pneumonia of right lower lobe due to vomit J69.0 Acute dehydration E86.0 Dementia F03.90 Major depressive disorder, recurrent episode, severe with catatonia F33.2; F06.1 JORGE (generalized anxiety disorder) F41.1
--- NOTE | 2022-07-21 14:49 | Psychiatric Consultation ---
Date of Consultation July 21, 2022 Impression / Recommendations Impression 76 yo female with hx of catatonia, was a candidate for outpatient ECT, seen s/p aspiration event after which she was weak and slumped to floor without evidence of seizure or LOC. (1) Catatonia: (2) Aspiration pneumonia of right lower lobe due to vomit: (3) Acute dehydration: (4) Dementia: Plan due to recent issues with Vomit and swallow and IV access will shift dosing of Ativan to 1 mg TID before meals. Monitor as fall risk if does respond and is more active. EEG likely low yield I do not see recent head imaging, would likley now be required prior to initiation of ECT to rule out acute neurologic event as contributing factor, last MRI appears 2018 and would be more specific in differential from a psych standpoing than head CT but defer to hospitalist service. some features of her catatonia are atypical in that episodes don't clearly correlate with depression and typically lacks posturing or waxy flexibility, mainly severe abulia Dr. Tee notified for coordination of care Psych History Identifying Data 76 yo female, lives with in [place], outpatient of Dr. Tee at [facility], admit medically following an event. Consult is by hospitalist service for catatonia. Chief Complaint "yes". History of Present Illness Upon my arrival patient is slumped in bed leaning to her right, doesn't make eye contact. Initially answered 1 question with 1 word then deferred to her who was feeding her. Patient has been hospitalized on inpatient psychiatry here twice in 2018 and last seen on consult service in 2019. At that time there were concerns about cognitive decline, recurrent catatonia of unknown origin (depression vs. major cognitive change vs. psychosis as has appeared paranoid at times). Seems that she has been maintained on low dose Ativan for some time as higher doses chronically resulted in sedation. She hasn't been taking Ativan 0.5 mg QID consistently as caregiver sometimes skips doses in favor of administering up to 1.5 mg at once. At those times, "It's like a miracle" he says in that she will sit up, converse, and eat more. The patient recently Dr. Kulkarni through [facility] for consult to start outpatient ECT and was reportedly scheduled for either a follow up or to start treatments 07/25/22. Family made aware that current hospitalization for aspiration pneumonia makes it less likely she could begin treatment next week, particularly on an outpatient basis. Past Psychiatric History Previous Psych History: see above Allergies Allergy/AdvReac Type Severity Reaction Status Date / Time lincomycin Allergy Unknown HIVES Verified 07/20/22 18:21 nitrofurantoin Allergy Unknown HIVES Verified 07/20/22 18:21 Sulfa (Sulfonamide Allergy Unknown HIVES Verified 07/20/22 18:21 Antibiotics) Home Medications Medication Instructions Recorded Confirmed Type galantamine 12 mg tablet 12 mg PO BID 07/20/22 07/20/22 History lorazepam 0.5 mg tablet 0.5 mg PO QID 07/20/22 07/20/22 History Personal History Beliefs That Will Affect Care: None Patient History Medical History (Updated 07/21/22 @ 15:07 by Estelle Anna MD) Abdominal pain Abnormal urinalysis Bronchitis Chest pain Confusion Decreased responsiveness Dementia DVT prophylaxis Elevated TSH Fracture of multiple ribs of both sides JORGE (generalized anxiety disorder) . HTN (hypertension) IBS (irritable bowel syndrome) Major depressive disorder, recurrent episode, severe with catatonia Pneumonia Pulmonary nodules Stomach problems T12 compression fracture UTI (urinary tract infection) Surgical History H/O dilation and curettage Previous section x2 Family History Sister Diabetes Father Liver cancer Mother CHF (congestive heart failure) Daughter Bipolar disorder Daughter Depression Social History Smoking Status: Never smoker Hx Alcohol Use: No Hx Substance Use: No Preferred Language: Djib[place]ian Communication Ability: catatonic Communication Ability Comment: answers a few questions but refuses to answer most Visual Impairment: No Limitations Hearing Ability: Normal Certified Personal Finance Counselor Required: No Beliefs That Will Affect Care: None marital status: Current Living Situation: Spouse current occupational status: retired Other Information That Helps Us Care for You: No Feels Safe at Home: Yes Safety Concerns: Feels Safe At This Time Assistive Devices: None Physical Exam Psychiatric: Orientation: alert Eye Contact: + poor eye contact Motor Behavior: no abnormal motor movements Speech: + abnormal rate/rhythm/volume of speech (paucity) Affect: + depressed affect appears preoccupied but does not appear to be responding to internal stimuli Vital Signs (Past 24 Hours): Last Vital Signs Temp 36.6 C 07/21/22 10:51 Pulse 77 07/21/22 10:51 Resp 20 07/21/22 10:51 BP 128/66 07/21/22 10:51 Pulse Ox 97 07/21/22 10:51 O2 Del Method 07/21/22 11:26 Review of Systems Unobtainable due to cognitive status Results & Data (PSY) Laboratory Results Microbiology 07/20/22 15:43 Blood Aerobic Blood Culture - Pending 07/20/22 15:43 Blood Anaerobic Blood Culture - Pending 07/20/22 16:53 Blood Aerobic Blood Culture - Pending 07/20/22 16:53 Blood Anaerobic Blood Culture - Pending Labs 07/20/22 07/20/22 07/20/22 15:43 15:43 15:43 WBC 15.75 H RBC 4.19 Hgb 13.7 Hct 41.3 MCV 98.6 MCH 32.7 MCHC 33.2 RDW Std Deviation 44.5 RDW Coeff of Belkis 12.3 Plt Count 321 MPV 9.8 Immature Gran % (Auto) 0.3 Neut % (Auto) 93.3 Lymph % (Auto) 2.5 Owen % (Auto) 3.7 Eos % (Auto) 0.0 Baso % (Auto) 0.2 Neut # (Auto) 14.68 H Lymph # (Auto) 0.40 L Owen # (Auto) 0.59 Eos # (Auto) 0.00 Baso # (Auto) 0.03 Immature Gran # (Auto) 0.05 H Sodium 140 Potassium 4.2 Chloride 104 Carbon Dioxide 26 Anion Gap 10 BUN 18 Creatinine 0.79 Est Cr Clr Drug Dosing Not Reportable Est GFR ( Amer) 84.3 Est GFR (Non-Af Amer) 72.7 BUN/Creatinine Ratio 22.8 H Glucose 168 H Lactate Calcium 9.3 Phosphorus 3.2 Magnesium 1.8 Total Bilirubin 0.9 AST 16 ALT 13 Alkaline Phosphatase 42 Total Creatine Kinase 79 Troponin I High Sens 9.5 Total Protein 7.2 Albumin 4.2 Globulin 3.0 Albumin/Globulin Ratio 1.4 Lipase 23 Procalcitonin Urine Color Urine Appearance Urine pH Ur Specific [place] Urine Protein Urine Glucose (UA) Urine Ketones Urine Blood Urine Nitrite Urine Bilirubin Urine Urobilinogen Ur Leukocyte Esterase Urine WBC (Auto) Urine RBC (Auto) U Hyaline Cast (Auto) U Epithel Cells (Auto) Urine Bacteria (Auto) SARS-CoV-2 (PCR) Influenza Type A (PCR) Influenza Type B (PCR) RSV (RT-PCR) 07/20/22 07/20/22 07/20/22 15:43 15:43 16:53 WBC RBC Hgb Hct MCV MCH MCHC RDW Std Deviation RDW Coeff of Belkis Plt Count MPV Immature Gran % (Auto) Neut % (Auto) Lymph % (Auto) Owen % (Auto) Eos % (Auto) Baso % (Auto) Neut # (Auto) Lymph # (Auto) Owen # (Auto) Eos # (Auto) Baso # (Auto) Immature Gran # (Auto) Sodium Potassium Chloride Carbon Dioxide Anion Gap BUN Creatinine Est Cr Clr Drug Dosing Est GFR ( Amer) Est GFR (Non-Af Amer) BUN/Creatinine Ratio Glucose Lactate 2.2 H* Calcium Phosphorus Magnesium Total Bilirubin AST ALT Alkaline Phosphatase Total Creatine Kinase Troponin I High Sens Total Protein Albumin Globulin Albumin/Globulin Ratio Lipase Procalcitonin 0.28 Urine Color Urine Appearance Urine pH Ur Specific [place] Urine Protein Urine Glucose (UA) Urine Ketones Urine Blood Urine Nitrite Urine Bilirubin Urine Urobilinogen Ur Leukocyte Esterase Urine WBC (Auto) Urine RBC (Auto) U Hyaline Cast (Auto) U Epithel Cells (Auto) Urine Bacteria (Auto) SARS-CoV-2 (PCR) NEGATIVE Influenza Type A (PCR) Negative Influenza Type B (PCR) Negative RSV (RT-PCR) Negative 07/20/22 07/21/22 07/21/22 23:32 08:16 08:16 WBC 15.37 H RBC 3.23 L Hgb 10.7 L D Hct 31.8 L MCV 98.5 MCH 33.1 MCHC 33.6 RDW Std Deviation 45.3 RDW Coeff of Belkis 12.6 Plt Count 270 MPV 9.9 Immature Gran % (Auto) 0.5 Neut % (Auto) 82.6 Lymph % (Auto) 12.0 Owen % (Auto) 4.6 Eos % (Auto) 0.0 Baso % (Auto) 0.3 Neut # (Auto) 12.71 H Lymph # (Auto) 1.85 Owen # (Auto) 0.70 Eos # (Auto) 0.00 Baso # (Auto) 0.04 Immature Gran # (Auto) 0.07 H Sodium 140 Potassium 3.8 Chloride 110 H Carbon Dioxide 25 Anion Gap 5 BUN 11 Creatinine 0.64 Est Cr Clr Drug Dosing 49.0 Est GFR ( Amer) 100.5 Est GFR (Non-Af Amer) 86.7 BUN/Creatinine Ratio 17.2 Glucose 89 Lactate 1.1 Calcium 8.0 L Phosphorus Magnesium 1.8 Total Bilirubin AST ALT Alkaline Phosphatase Total Creatine Kinase Troponin I High Sens Total Protein Albumin Globulin Albumin/Globulin Ratio Lipase Procalcitonin Urine Color Urine Appearance Urine pH Ur Specific [place] Urine Protein Urine Glucose (UA) Urine Ketones Urine Blood Urine Nitrite Urine Bilirubin Urine Urobilinogen Ur Leukocyte Esterase Urine WBC (Auto) Urine RBC (Auto) U Hyaline Cast (Auto) U Epithel Cells (Auto) Urine Bacteria (Auto) SARS-CoV-2 (PCR) Influenza Type A (PCR) Influenza Type B (PCR) RSV (RT-PCR) 07/21/22 11:21 WBC RBC Hgb Hct MCV MCH MCHC RDW Std Deviation RDW Coeff of Belkis Plt Count MPV Immature Gran % (Auto) Neut % (Auto) Lymph % (Auto) Owen % (Auto) Eos % (Auto) Baso % (Auto) Neut # (Auto) Lymph # (Auto) Owen # (Auto) Eos # (Auto) Baso # (Auto) Immature Gran # (Auto) Sodium Potassium Chloride Carbon Dioxide Anion Gap BUN Creatinine Est Cr Clr Drug Dosing Est GFR ( Amer) Est GFR (Non-Af Amer) BUN/Creatinine Ratio Glucose Lactate Calcium Phosphorus Magnesium Total Bilirubin AST ALT Alkaline Phosphatase Total Creatine Kinase Troponin I High Sens Total Protein Albumin Globulin Albumin/Globulin Ratio Lipase Procalcitonin Urine Color Yellow Urine Appearance Clear Urine pH 7.5 Ur Specific [place] 1.038 H Urine Protein Negative Urine Glucose (UA) Negative Urine Ketones Trace H Urine Blood Trace H Urine Nitrite Negative Urine Bilirubin Negative Urine Urobilinogen Negative Ur Leukocyte Esterase Negative Urine WBC (Auto) 1-5 Urine RBC (Auto) 0-4 U Hyaline Cast (Auto) 0 U Epithel Cells (Auto) 10-20 H Urine Bacteria (Auto) Negative SARS-CoV-2 (PCR) Influenza Type A (PCR) Influenza Type B (PCR) RSV (RT-PCR) Diagnostic Findings Chest X-Ray 07/20/22 15:28 XR chest 1V portable CLINICAL HISTORY: near syncope TECHNIQUE: Single frontal radiograph of the chest was obtained. Comparison: Comparison is made to chest radiograph 01/23/2019 FINDINGS: No lines and tubes are seen. The aorta is tortuous. The remainder of the cardiomediastinal silhouette is unremarkable. Faint airspace opacities are in the right lower lung. No evidence of pleural effusion or pneumothorax. IMPRESSION: Faint airspace opacities are the right lower lung which may represent atelectasis, pneumonia, and/or aspiration. ACT 112: Negative or not required by law. Electronically signed by: Tanner Madrid M.D. 07/20/2022 4:16 PM KUB X-Ray 07/20/22 15:28 XR KUB/Abdomen 1 view CLINICAL HISTORY: vomiting TECHNIQUE: 1 view of the abdomen was obtained. Comparison: None available at the time of this dictation. FINDINGS: A calcified fibroid is seen. Degenerative changes are seen in the visualized skeleton. The bowel gas pattern is nonobstructive. No significant stool burden was visualized. IMPRESSION: Nonobstructive bowel gas pattern. ACT 112: Negative or not required by law. Electronically signed by: Tanner Madrid M.D. 07/20/2022 4:16 PM Abdomen/Pelvis CT 07/21/22 04:33 CT abd pelvis IV con only CLINICAL HISTORY: Oliguria, c/f obstruction TECHNIQUE: Helical axial images of the abdomen and pelvis were obtained and displayed. Automated dose lowering techniques and/or adjustment according to patient size were utilized for this exam. This exam was performed with intravenous contrast. CT DOSE: 246.54 mGy.cm COMPARISON: Comparison is made to CT abdomen pelvis 05/22/2018 FINDINGS: Lower chest: There is atelectasis versus scarring in the right lung base. Superimposed pneumonia cannot be excluded. Liver: Unremarkable. No focal lesions are seen. Gallbladder and biliary tree: No calcified gallstones. Normal caliber wall. No intra- or extrahepatic biliary ductal dilation. Pancreas: Unremarkable, no focal lesions. Spleen: Unremarkable. Adrenals: Unremarkable. Kidneys and ureters: Unremarkable. Bladder: The bladder is markedly distended without bladder wall thickening. Reproductive organs: Prominent calcified fibroid is noted. A right adnexal cyst has enlarged, previously measured 44 x 49 mm, now measures 72 x 54 mm. Bowel: A hiatal hernia is seen. Diverticulosis is seen without evidence of diverticulitis. Lymph nodes Retroperitoneal: Unremarkable. Pelvic: Unremarkable. Mesenteric: Unremarkable. Peritoneum: Normal. Vessels: Atherosclerotic calcifications are seen. Abdominal wall: Unremarkable. Bones: Degenerative changes in the visualized spine. IMPRESSION: 1. No evidence of hydronephrosis or other acute abnormality. 2. Diverticulosis without diverticulitis. 3. Marked distention of the bladder. 4. Right adnexal cyst is enlarged from prior exam. 5. Atelectasis in the right lung base. Superimposed pneumonia cannot be exclude d. ACT 112: Negative or not required by law. Electronically signed by: Tanner Madrid M.D. 07/21/2022 10:22 AM Medications Administered Enoxaparin Sodium (Enoxaparin Inj 40 Mg/0.4 Ml Syr) 40 mg SQ Q24H [facility] Stop: 08/19/22 21:29 Last Admin: 07/21/22 00:31 Dose: 40 mg Documented By: ELIDA Ampicillin Sodium/Sulbactam Sodium 3,000 mg/ Sodium Chloride 108 mls @ 216 mls/hr IV Q6H [facility]; Protocol Stop: 07/28/22 12:59 Last Infusion: 07/21/22 14:20 Dose: 0 mls/hr Documented By: Admin: 07/21/22 13:40 Dose: 216 mls/hr Documented By: MANDI Lorazepam (Lorazepam 2 Mg/1 Ml Vial) 1 mg IV AC [facility] Stop: 08/20/22 12:59 Last Admin: 07/21/22 13:40 Dose: 1 mg Documented By: MANDI Miscellaneous (Galantamine~Order Awaiting Action) 1 each N/A QS [facility] Stop: 08/20/22 00:00 Last Admin: 07/21/22 08:54 Dose: Not Given Documented By: Admin: 07/21/22 00:31 Dose: Not Given Documented By: ELIDA Coding Level of Care Code 85337 [facility] Intl Hosp Care Lvl 3 Diagnoses Catatonia F06.1 Aspiration pneumonia of right lower lobe due to vomit J69.0 Acute dehydration E86.0 Dementia F03.90 Time Spent (min) 72 Comment >50% time spent coordination of care, psycho ed, communication with providers, etc.
--- NOTE | 2022-07-21 15:15 | Electrocardiogram Report ---
Test Reason : Blood Pressure : / mmHG Vent. Rate : 116 BPM Atrial Rate : 116 BPM P-R Int : 162 ms QRS Dur : 072 ms QT Int : 316 ms P-R-T Axes : 056 074 248 degrees QTc Int : 439 ms Poor data quality, interpretation may be adversely affected Sinus tachycardia with Premature supraventricular complexes Abnormal ECG When compared with ECG of 23-JAN-2019 15:35, Premature supraventricular complexes are now Present ST now depressed in Inferolateral leads T wave inversion now evident in Inferolateral leads Confirmed by Jean Pierre Alexander ([id number]) on 07/21/2022 3:15:18 PM Referred By: REFERRED SELF Confirmed By:Jean Pierre Alexander
[2022-07-22] MEDS: AMPICILLIN/SULBACTAM SOD 3,000 MG in 0.9 % SODIUM CHLORIDE 100 ML IV SCH ×4 (01:19→18:51)
[2022-07-22] MEDS: LORazepam 2 MG/1 ML VIAL IV SCH ×3 (01:45→17:29)
[2022-07-22 08:07] LABS: Basophils # (auto) 0.04 K/uL (0-0.2); Basophils % (auto) 0.4 %; Eosinophils # (auto) 0.08 K/uL (0-0.50); Eosinophils % (auto) 0.9 %; Hematocrit (blood only) 32.1 % (34.1-44.9); Hemoglobin 10.9 g/dl (12.0-16.0); Immature Granulocytes # (auto) 0.03 K/uL (0.00-0.02); Immature Granulocytes % (auto) 0.3 %; Lymphocytes # (auto) 1.66 K/uL (1.2-3.4); Lymphocytes % (auto) 18.2 %; Mean Corpuscular Hemoglobin 32.5 pg (25.0-34.0); Mean Corpuscular Volume 95.8 fL (80.0-100.0); Mean Platelet Volume 10.1 fL (9.4-12.3); Monocytes # (auto) 0.68 K/uL (0.24-0.82); Monocytes % (auto) 7.5 %; Neutrophils # (auto) 6.62 K/uL (1.4-6.5); Neutrophils % (auto) 72.7 %; Platelet Count 263 K/uL (130-400); RDW Coefficient of Variation 12.3 % (11.5-14.5); RDW Standard Deviation 43.5 fL (36.4-46.3); Red Blood Count 3.35 M/uL (3.93-5.22); White Blood Count 9.11 K/ul (4.8-10.8)
[2022-07-22] MEDS: [UNRECOGNIZED DRUG - REMARK] SCH ×2 (08:20→15:00)
[2022-07-22 08:46] LABS: Calcium 8.1 mg/dl (8.5-10.1); Potassium 3.6 mmol/L (3.5-5.1)
[2022-07-22 08:52] LABS: BUN Creatinine Ratio 17.2 (10-20); Creatinine Clr Calc Pharmacy 54.1 ml/min; Est GFR (African American) 103.8 ml/min; Est GFR (Non-African American) 89.5 ml/min
--- NOTE | 2022-07-22 11:52 | Discharge Summary ---
Date of Service July 22, 2022 Admission HPI Per Admitting Provider [place] is a 76-year-old female with past medical history significant for generalized anxiety disorder and major depressive disorder disorder with history of episodes of catatonia, and dementia who is presenting today for weakness. Patient is very guarded at bedside and provides very limited history. She states she has been feeling weak due to vomiting over the past couple days but denies any fever, chills, abdominal pain, nausea, diarrhea, constipation, melena, hematochezia. She feels she has been eating well and drinking well but sometimes food does come back up after eating. Patient did not report this today, but per ED provider she did feel so weak today that she collapsed to the ground, but did not lose consciousness or hit her head. Since the episode, she has been in a catatonic state per this often happens where she will not move or speak. At baseline, patient is physically capable of walking several miles a day which she does often with her . On exam, the patient does not appear to be in any distress. Vital signs remarkable for tachycardia to the 100s, BP mildly hypertensive 145/79, afebrile and not hypoxic. Labs notable for White count of 15 with left shift, lactate 2.2, procalcitonin 0.28. No electrolyte abnormalities, CK 79, renal function at baseline, without LFT elevation. COVID/flu/RSV negative. CXR shows faint airspace opacities in the right lower lung, KUB shows nonobstructive bowel gas pattern. Principal Diagnosis Right lower lobe aspiration pneumonia, volume depletion, nausea and vomiting Discharge Exam General-awake but nonverbal. She has a history of catatonia. No apparent distress HEENT-head atraumatic and normocephalic, pupils equal and reactive to light, extraocular muscles intact Neck-no lymphadenopathy or thyromegaly, trachea midline Chest-clear to auscultation percussion. No rales, wheezing or rhonchi Cardiac-regular rate and rhythm, normal S1 and S2 Abdomen-normal bowel sounds, nontender, no hepatosplenomegaly Extremities-no cyanosis, clubbing, or edema Neuro-cranial nerves II through XII intact, motor and sensory function within normal limits, strength symmetrical , no focal deficits Psych-depressed affect. Nonverbal with oh Discharge Data Allergies Allergy/AdvReac Type Severity Reaction Status Date / Time lincomycin Allergy Unknown HIVES Verified 07/20/22 18:21 nitrofurantoin Allergy Unknown HIVES Verified 07/20/22 18:21 Sulfa (Sulfonamide Allergy Unknown HIVES Verified 07/20/22 18:21 Antibiotics) Consultations 07/20/22 17:59 ED Decision to Admit Stat 07/20/22 21:05 Consult Psychiatry Routine 07/21/22 09:17 Consult Urology Routine Ordered Studies 07/21/22 04:33 CT abd pelvis IV con only Stat Hospital Course (1) Aspiration pneumonia of right lower lobe due to vomit: Treated while hospitalized with Unasyn. Chest x-ray done today, July 22, reveals right lower lobe consolidation. She will remain on oral antibiotics as an outpatient and will need follow-up outpatient chest x-ray. is aware. She is currently on room air. (2) Acute dehydration: Present on admission. Resolved with IV fluids. (3) Dementia: Treated with galantamine. The states that she does not have dementia but does have catatonia (4) Major depressive disorder, recurrent episode, severe with catatonia: Continue current medication management. (5) JORGE (generalized anxiety disorder): Stable with current benzodiazepine therapy Plan Home today, July 22, on oral antibiotics. is aware that she should have a follow-up outpatient chest x-ray in several weeks to document complete resolution of right lower lobe pneumonia. Total Time Total Time Spent Total Time Spent (In Minutes): 35 minutes Discharge Plan Discharge Items Patient Disposition: Home - Self-Care Reason For Visit: ASPIRATION PNEUMONIA Discharge Diagnosis: Right lower lobe aspiration pneumonia, hypovolemia, transient nausea and vomiting Activity: Resume your previous activity Non-emergency contact: Primary Care Provider Call non-emergency contact if: your symptoms worsen Follow-up/Referrals: PCP,NO [Primary Care Provider] - Diet: Heart Healthy Addtl Attending Provider Instructions: Take Augmentin suspension (antibiotic) for 5 more days Pending Studies at Discharge: No Stand-Alone Forms: My [employer], Smoking Cessation Medications and DC Order Prescriptions: New amoxicillin-pot clavulanate 600-42.9 mg/5 mL suspension for reconstitution 5 ml PO BID 7 Days Qty: 70 0RF Continued galantamine 12 mg tablet 12 mg PO BID lorazepam 0.5 mg tablet 0.5 mg PO QID Discharge Orders: Discharge Order (Routine); Ordered 07/22/22 Ordered By: Freeman Graham Admission Data Admit Date/Time: 07/20/22 17:47 Attending Provider: Freeman Graham Admit Provider: Huan Falcon Primary Care Provider: PCP,NO Other Providers: Huan Falcon ; Asuncion Callejas ; Estelle Anna ; Jeb Spencer ; Kameron Mansfield ; Yadiel Carrillo ; Don Wilks ; Jaja Anaya ; Luis Martinez ; Marii Raymundo ; Kayleigh Pham ; Yan Fitzgerald ; Twan Hurley ; [place] ; Dixon Cabrera ; Dago Preston Coding Level of Care Code HOSP INP/OBS DISCH >30 MIN Diagnoses Aspiration pneumonia of right lower lobe due to vomit J69.0 Acute dehydration E86.0 Dementia F03.90 Major depressive disorder, recurrent episode, severe with catatonia F33.2; F06.1 JORGE (generalized anxiety disorder) F41.1
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
--- NOTE | 2022-07-22 14:23 | XRay Report ---
XR chest 1V portable CLINICAL HISTORY: aspiration pneumonia TECHNIQUE: Single frontal radiograph of the chest was obtained. Comparison: Comparison is made to chest radiograph 07/20/2022 FINDINGS: No lines and tubes are seen. The cardiomediastinal silhouette is normal. Redemonstration of faint rig ht lower lung airspace opacities. No evidence of pleural effusion or pneumothorax. IMPRESSION: Faint right lower lung airspace opacities may represent atelectasis and/or aspiration/pneumonia. Othe rwise no acute abnormalities. ACT 112: Negative or not required by law. Electronically signed by: Tanner Madrid M.D. 07/22/2022 2:20 PM
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
[2022-07-22] MEDS: ENOXAPARIN INJ 40 MG/0.4 ML SYR SQ SCH (20:09)
[2022-07-23] MEDS: [UNRECOGNIZED DRUG - REMARK] SCH ×3 (01:08→15:01)
[2022-07-23] MEDS: AMPICILLIN/SULBACTAM SOD 3,000 MG in 0.9 % SODIUM CHLORIDE 100 ML IV SCH ×4 (02:36→18:21)
[2022-07-23 07:10] LABS: Basophils # (auto) 0.02 K/uL (0-0.2); Basophils % (auto) 0.3 %; Eosinophils # (auto) 0.11 K/uL (0-0.50); Eosinophils % (auto) 1.9 %; Hematocrit (blood only) 32.3 % (34.1-44.9); Immature Granulocytes # (auto) 0.02 K/uL (0.00-0.02); Immature Granulocytes % (auto) 0.3 %; Lymphocytes # (auto) 1.79 K/uL (1.2-3.4); Lymphocytes % (auto) 30.7 %; Mean Corpuscular Hemoglobin 32.4 pg (25.0-34.0); Mean Corpuscular Hgb Conc 34.1 g/dL (32.0-36.0); Mean Platelet Volume 9.8 fL (9.4-12.3); Monocytes # (auto) 0.56 K/uL (0.24-0.82); Monocytes % (auto) 9.6 %; Neutrophils # (auto) 3.34 K/uL (1.4-6.5); Neutrophils % (auto) 57.2 %; Platelet Count 268 K/uL (130-400); RDW Coefficient of Variation 12.1 % (11.5-14.5); RDW Standard Deviation 42.4 fL (36.4-46.3); White Blood Count 5.84 K/ul (4.8-10.8)
[2022-07-23 07:36] LABS: Calcium 7.8 mg/dl (8.5-10.1); Potassium 3.6 mmol/L (3.5-5.1)
[2022-07-23 07:42] LABS: BUN Creatinine Ratio 15.9 (10-20); Creatinine Clr Calc Pharmacy 50.8 ml/min; Est GFR (Non-African American) 87.1 ml/min
[2022-07-23] MEDS: LORazepam 2 MG/1 ML VIAL IV SCH (08:24)
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
[2022-07-23] MEDS: LORazepam 0.5 MG TAB PO SCH ×2 (14:26→20:46)
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
[2022-07-23] MEDS: ENOXAPARIN INJ 40 MG/0.4 ML SYR SQ SCH (20:45)
[2022-07-24] MEDS: [UNRECOGNIZED DRUG - REMARK] SCH ×3 (01:05→15:52)
[2022-07-24] MEDS: AMPICILLIN/SULBACTAM SOD 3,000 MG in 0.9 % SODIUM CHLORIDE 100 ML IV SCH ×4 (01:21→20:09)
[2022-07-24 06:57] LABS: Basophils # (auto) 0.02 K/uL (0-0.2); Basophils % (auto) 0.4 %; Eosinophils # (auto) 0.16 K/uL (0-0.50); Eosinophils % (auto) 3.5 %; Hematocrit (blood only) 32.6 % (34.1-44.9); Hemoglobin 11.1 g/dl (12.0-16.0); Lymphocytes # (auto) 1.49 K/uL (1.2-3.4); Lymphocytes % (auto) 32.5 %; Mean Corpuscular Hemoglobin 32.2 pg (25.0-34.0); Mean Corpuscular Volume 94.5 fL (80.0-100.0); Mean Platelet Volume 9.7 fL (9.4-12.3); Monocytes # (auto) 0.45 K/uL (0.24-0.82); Monocytes % (auto) 9.8 %; Neutrophils # (auto) 2.46 K/uL (1.4-6.5); Neutrophils % (auto) 53.8 %; Platelet Count 288 K/uL (130-400); RDW Coefficient of Variation 11.9 % (11.5-14.5); RDW Standard Deviation 41.6 fL (36.4-46.3); Red Blood Count 3.45 M/uL (3.93-5.22); White Blood Count 4.58 K/ul (4.8-10.8)
[2022-07-24 07:18] LABS: BUN Creatinine Ratio 14.3 (10-20); Calcium 8.2 mg/dl (8.5-10.1); Creatinine Clr Calc Pharmacy 57.2 ml/min; Est GFR (Non-African American) 90.6 ml/min; Potassium 3.7 mmol/L (3.5-5.1)
[2022-07-24] MEDS: LORazepam 0.5 MG TAB PO SCH ×2 (09:44→15:34)
--- NOTE | 2022-07-24 14:22 | Hospitalist Progress Note ---
Date of Service July 24, 2022 Assessment & Plan (1) Aspiration pneumonia of right lower lobe due to vomit: Plan: Had been vomiting at home prior to presentation. Presumed aspiration pneumonia. Day #4 of unasyn. Can likely transition to PO augmentin tomorrow if reliable with taking PO meds. Remains stable in room air. (2) Acute dehydration: Plan: Present on admission. Resolved with IV fluids. Eating has improved over last 1-2 days per . (3) Dementia: Plan: My impression is that the patient has some form of underlying dementia. She is oriented to person/place but not time (1998, April, etc). Her affect is very flat, almost parkinson's like. Her standing posture, gait, etc has parkinsonian type features. She has muscle atrophy of thigh muscles much worse on left and her tone is increased on that side as well. Ordered MRI brain after getting permission from her but patient refused to cooperate and even go down to radiology for this. Defer for now. Does she have developing Lewy-body dementia? PD with dementia? Other form of dementia? Consider neurology consult for their opinion. If unable to obtain MRI brain consider CT head. (4) Major depressive disorder, recurrent episode, severe with catatonia: Plan: Follows with Dr Tee in [place]. Has been taking ativan QID scheduled for some time for concern for catatonia. Appreciate Dr Anna's consult. ?akinetic mutism? ?true catatonia? ?dementia? Dr Anna mentioned that we could consider a trial of sinemet. Weaning ativan. (5) JORGE (generalized anxiety disorder): (6) Underweight: Plan: BMI <18 due to #3? (7) Incomplete bladder emptying: Plan: seen by urology they recommended to try and avoid gavin for now timed voids advised follow (8) Elevated TSH: Plan: Multiple TSH levels in 2018 and 2019 were high No TSH level since then repeat TSH with FT4 in am (9) Adnexal cyst: Plan: right -- has enlarged over time; previously measured 44 x 49 mm, now measures 72 x 54 mm will d/w whether to pursue any w/u for this Plan DVT proph - lovenox patient did very poorly with therapy over the weekend unsafe at this time to return home; she is not close to her baseline discussed with at bedside today await head imaging consider neuro consult appreciate psych input needs more PT/OT no discharge today Admission and Anticipated Discharge Date Admission Date: July 20, 2022 Subjective patient laying in bed the entire visit she only speaks if asked a question; doesn't volunteer information spontaneously when asked the year she reported it was 1998 month - April knew she was in the hospital however when asked the name of her she said "Angel Luis" however, when I asked her how he was related to her she initially didn't respond; she finally said "he's my friend" denies any complaints reports that at baseline she "walks around the living room" and is able to transfer from bed to standing position with just 1-person assist she can transfer from the couch to standing position with 1-person assist she typically is continent of urine - he practices timed voids with her Dr Anna from psych was present during the visit we discussed as a group her current condition, need for repeat head imaging (none since 2018), ?trial of sinemet, and cutting back the ativan distraught - he is very upset that she is laying in bed so frequently; he wants her in the chair at least 2x/day and up walking as much as possible Review of Systems Review of Systems: Unobtainable due to cognitive status Physical Exam Physical Exam: gen - thin, frail, talks very softly; confused mouth - MMM neck - no JVD heart - RRR, s1 s2, no murmur lungs - CTA b/l except mild rales RLL abd - soft NT ND BS+ ext - no edema, pulses 2+ b/l neuro - b/l leg contractures, much worse on left; muscle atrophy of Left thigh muscles noted; when she stands she does so with stooped posture; she has backwards sway with standing; with sitting she leans to the right; face - very flat, nearly "masked facies" Results & Data Results & Data ([facility]) Vital Signs (Past 12 Hours) Vital Signs Temp Pulse Pulse Resp BP BP Pulse Ox 07/24/22 11:35 37 C 77 14 147/77 H 96 07/24/22 11:28 07/24/22 08:05 36.7 C 80 14 162/97 H 97 07/24/22 03:44 37.1 C 84 16 124/68 93 07/24/22 02:44 69 O2 Del Method 07/24/22 11:35 Room Air 07/24/22 11:28 Room Air 07/24/22 08:05 Room Air 07/24/22 03:44 Room Air 07/24/22 02:44 Laboratory Results Laboratory Results - last 24 hr 07/24/22 07/24/22 06:32 06:32 WBC 4.58 L RBC 3.45 L Hgb 11.1 L Hct 32.6 L MCV 94.5 MCH 32.2 MCHC 34.0 RDW Std Deviation 41.6 RDW Coeff of Belkis 11.9 Plt Count 288 MPV 9.7 Immature Gran % (Auto) 0.0 Neut % (Auto) 53.8 Lymph % (Auto) 32.5 [place] % (Auto) 9.8 Eos % (Auto) 3.5 Baso % (Auto) 0.4 Neut # (Auto) 2.46 Lymph # (Auto) 1.49 [place] # (Auto) 0.45 Eos # (Auto) 0.16 Baso # (Auto) 0.02 Immature Gran # (Auto) 0.00 Sodium 141 Potassium 3.7 Chloride 111 H Carbon Dioxide 25 Anion Gap 5 BUN 8 Creatinine 0.56 L Est Cr Clr Drug Dosing 57.2 Est GFR ( Amer) 105.0 Est GFR (Non-Af Amer) 90.6 BUN/Creatinine Ratio 14.3 Glucose 91 Calcium 8.2 L Diagnostic Findings Chest X-Ray 07/20/22 15:28 XR chest 1V portable CLINICAL HISTORY: near syncope TECHNIQUE: Single frontal radiograph of the chest was obtained. Comparison: Comparison is made to chest radiograph 01/23/2019 FINDINGS: No lines and tubes are seen. The aorta is tortuous. The remainder of the cardiomediastinal silhouette is unremarkable. Faint airspace opacities are in the right lower lung. No evidence of pleural effusion or pneumothorax. IMPRESSION: Faint airspace opacities are the right lower lung which may represent atelectasis, pneumonia, and/or aspiration. ACT 112: Negative or not required by law. Electronically signed by: Tanner Madrid M.D. 07/20/2022 4:16 PM KUB X-Ray 07/20/22 15:28 XR KUB/Abdomen 1 view CLINICAL HISTORY: vomiting TECHNIQUE: 1 view of the abdomen was obtained. Comparison: None available at the time of this dictation. FINDINGS: A calcified fibroid is seen. Degenerative changes are seen in the visualized skeleton. The bowel gas pattern is nonobstructive. No significant stool burden was visualized. IMPRESSION: Nonobstructive bowel gas pattern. ACT 112: Negative or not required by law. Electronically signed by: Tanner Madrid M.D. 07/20/2022 4:16 PM Abdomen/Pelvis CT 07/21/22 04:33 CT abd pelvis IV con only CLINICAL HISTORY: Oliguria, c/f obstruction TECHNIQUE: Helical axial images of the abdomen and pelvis were obtained and displayed. Automated dose lowering techniques and/or adjustment according to patient size were utilized for this exam. This exam was performed with intravenous contrast. CT DOSE: 246.54 mGy.cm COMPARISON: Comparison is made to CT abdomen pelvis 05/22/2018 FINDINGS: Lower chest: There is atelectasis versus scarring in the right lung base. Superimposed pneumonia cannot be excluded. Liver: Unremarkable. No focal lesions are seen. Gallbladder and biliary tree: No calcified gallstones. Normal caliber wall. No intra- or extrahepatic biliary ductal dilation. Pancreas: Unremarkable, no focal lesions. Spleen: Unremarkable. Adrenals: Unremarkable. Kidneys and ureters: Unremarkable. Bladder: The bladder is markedly distended without bladder wall thickening. Reproductive organs: Prominent calcified fibroid is noted. A right adnexal cyst has enlarged, previously measured 44 x 49 mm, now measures 72 x 54 mm. Bowel: A hiatal hernia is seen. Diverticulosis is seen without evidence of diverticulitis. Lymph nodes Retroperitoneal: Unremarkable. Pelvic: Unremarkable. Mesenteric: Unremarkable. Peritoneum: Normal. Vessels: Atherosclerotic calcifications are seen. Abdominal wall: Unremarkable. Bones: Degenerative changes in the visualized spine. IMPRESSION: 1. No evidence of hydronephrosis or other acute abnormality. 2. Diverticulosis without diverticulitis. 3. Marked distention of the bladder. 4. Right adnexal cyst is enlarged from prior exam. 5. Atelectasis in the right lung base. Superimposed pneumonia cannot be excluded. ACT 112: Negative or not required by law. Electronically signed by: Tanner Madrid M.D. 07/21/2022 10:22 AM Chest X-Ray 07/22/22 07:00 XR chest 1V portable CLINICAL HISTORY: aspiration pneumonia TECHNIQUE: Single frontal radiograph of the chest was obtained. Comparison: Comparison is made to chest radiograph 07/20/2022 FINDINGS: No lines and tubes are seen. The cardiomediastinal silhouette is normal. Redemonstration of faint right lower lung airspace opacities. No evidence of pleural effusion or pneumothorax. IMPRESSION: Faint right lower lung airspace opacities may represent atelectasis and/or aspiration/pneumonia. Otherwise no acute abnormalities. ACT 112: Negative or not required by law. Electronically signed by: Tanner Madrid M.D. 07/22/2022 2:20 PM PG Care Time/CCT Total # of Minutes Spent Total Time Spent with Patient: Total time spent is greater than 50% in coordination of care (as documented) at patient's floor/unit and/or counseling patient: Coding Level of Care Code 60897 SUB INP/OBS CARE 3/50MIN Diagnoses Aspiration pneumonia of right lower lobe due to vomit J69.0 Acute dehydration E86.0 Dementia F03.90 Major depressive disorder, recurrent episode, severe with catatonia F33.2; F06.1 JORGE (generalized anxiety disorder) F41.1 Underweight R63.6 Incomplete bladder emptying R33.9 Elevated TSH R79.89 Adnexal cyst N94.9
--- NOTE | 2022-07-24 16:33 | Psychiatric Progress Note ---
Date of Service July 24, 2022 Impression / Recommendations Impression 76 yo female with hx of catatonia, was a candidate for outpatient ECT, seen s/p aspiration event after which she was weak and slumped to floor without evidence of seizure or LOC. 07/24/2022: more alert today, ongoing abulia, discussed differential with Dr. 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 de pression. Given age of onset, course (unclear if current history re: baseline is accurate as not clear she would walk 1 mile a day prior to event), non response to Ativan challenge, suspect related to cognitive disorder. Cannot exclude psychotic depression. (1) Catatonia: (2) Aspiration pneumonia of right lower lobe due to vomit: (3) Acute dehydration: (4) Dementia: Plan 07/24/21: Dr. Tee updated. LM for Dr. Kulkarni re: appointment scheduled for 07/25 and desire to coordinate care. Will continue Ativan taper as patient typically doses every other day outside of the hospital so low risk withdrawal despite length of rx. Discussed pros/cons of Sinemet vs Ritalin with Dr. Arteaga and agreeable to MRI. 07/23/22: decreased Ativan to 0.5 mg TID prior to lunch time dose and will continue to taper. Note Galantamine is off label per Dr. Tee for residual catatonia, non-formulary but is ordered here. Will contact Dr. Kulkarni office re: input around ongoing candidacy for ECT. service reviewed PT/OT assessments. 07/22/22: appears that d/c was cancelled by hospitalist service in favor of PT/OT assessment and further monitoring of interactions with as nursing on floor reportedly witnessed forcing her to eat/drink when she did not want to and ambulation seemed unsafe for navigating stairs at home. If not improvement tomorrow on higher dose of Ativan will likely taper. Somewhat atypical presentation of catatonia, would be difficult to differentiate from akinetic mutism. otherwise no psych hx prior to [address] Tee and therefore limited antidepressant trials. Cognitive baseline is unclear. 07/21/22: due to recent issues with Vomit and swallow and IV access will shift dosing of Ativan to 1 mg TID before meals. Monitor as fall risk if does respond and is more active. EEG likely low yield I do not see recent head imaging, would realley now be required prior to initiation of ECT to rule out acute neurologic event as contributing factor, last MRI appears 2017 and would be more specific in differential from a psych standpoing than head CT but defer to hospitalist service. some features of her catatonia are atypical in that episodes don't clearly correlate with depression and typically lacks posturing or waxy flexibility, mainly severe abulia Dr. Tee notified for coordination of care Interval History Identifying Information 76 yo female, lives with in [place], outpatient of Dr. Tee at [facility], admit medically 07/20/22 following an event. Consult is by hospitalist service for catatonia, initial consult completed on 07/21/22. Chief Complaint remains at bedside, seen individually and with Dr. Arteaga Review of Systems Notes patient unable to complete due to cognitive status Subjective Subjective Patient's concerned about ongoing status in bed, feels he must feed her and would like staff to assist with OOB to chair/toileting more regularly. Patient remains in bed, typically leaning toward the right, often in position. Will not initiate movement or conversation. She did answer more questions today than yesterday. Physical Exam Psychiatric Orientation: alert and oriented to person Eye Contact: + poor eye contact Motor Behavior: no abnormal motor movements Speech: + abnormal rate/rhythm/volume of speech (paucity) Affect: + flat affect Mood: + depressed mood (though patient unable to verbalize) rote Vital Signs (Past 24 Hours) Last Vital Signs Temp 37.0 C 07/24/22 15:06 Pulse 81 07/24/22 15:06 Resp 20 07/24/22 15:06 BP 158/81 H 07/24/22 15:06 Pulse Ox 97 07/24/22 15:06 O2 Del Method 07/24/22 15:54 Results & Data ([facility]) Laboratory Results Laboratory Results - last 24 hr 07/24/22 07/24/22 06:32 06:32 WBC 4.58 L RBC 3.45 L Hgb 11.1 L Hct 32.6 L MCV 94.5 MCH 32.2 MCHC 34.0 RDW Std Deviation 41.6 RDW Coeff of Belkis 11.9 Plt Count 288 MPV 9.7 Immature Gran % (Auto) 0.0 Neut % (Auto) 53.8 Lymph % (Auto) 32.5 [place] % (Auto) 9.8 Eos % (Auto) 3.5 Baso % (Auto) 0.4 Neut # (Auto) 2.46 Lymph # (Auto) 1.49 [place] # (Auto) 0.45 Eos # (Auto) 0.16 Baso # (Auto) 0.02 Immature Gran # (Auto) 0.00 Sodium 141 Potassium 3.7 Chloride 111 H Carbon Dioxide 25 Anion Gap 5 BUN 8 Creatinine 0.56 L Est Cr Clr Drug Dosing 57.2 Est GFR ( Amer) 105.0 Est GFR (Non-Af Amer) 90.6 BUN/Creatinine Ratio 14.3 Glucose 91 Calcium 8.2 L Current Inpatient Medications Current Inpatient Medications: Current Inpatient Medications Acetaminophen (Acetaminophen 325 Mg Tab) 650 mg PO Q4H PRN PRN Reason: Pain or Fever Stop: 08/19/22 21:04 Enoxaparin Sodium (Enoxaparin Inj 40 Mg/0.4 Ml Syr) 40 mg SQ Q24H [facility] Stop: 08/19/22 21:29 Last Admin: 07/23/22 20:45 Dose: 40 mg Ampicillin Sodium/Sulbactam Sodium 3,000 mg/ Sodium Chloride 108 mls @ 216 mls/hr IV Q6H [facility]; Protocol Stop: 07/28/22 12:59 Last Infusion: 07/24/22 14:50 Dose: Infused Lorazepam (Lorazepam 0.5 Mg Tab) 0.5 mg PO TID [facility] Stop: 08/22/22 13:59 Last Admin: 07/24/22 15:34 Dose: Not Given Miscellaneous (Galantamine~Order Awaiting Action) 1 each N/A QS [facility] Stop: 08/20/22 00:00 Last Admin: 07/24/22 15:52 Dose: Not Given Ondansetron HCl (Ondansetron Inj 2 Mg/Ml 2 Ml Vial) 4 mg IV Q6H PRN PRN Reason: Nausea Stop: 08/19/22 21:04 Polyethylene Glycol (Polyethylene (Miralax) 17 Gm Pack) 17 gm PO DAILY PRN PRN Reason: Constipation Stop: 08/19/22 21:04
[2022-07-24] MEDS: ENOXAPARIN INJ 40 MG/0.4 ML SYR SQ SCH (20:09)
[2022-07-25] MEDS: [UNRECOGNIZED DRUG - REMARK] SCH ×4 (00:22→23:00)
[2022-07-25] MEDS: AMPICILLIN/SULBACTAM SOD 3,000 MG in 0.9 % SODIUM CHLORIDE 100 ML IV SCH ×4 (00:23→18:36)
[2022-07-25 06:58] LABS: Calcium 8.4 mg/dl (8.5-10.1); Potassium 3.8 mmol/L (3.5-5.1)
[2022-07-25 07:04] LABS: BUN Creatinine Ratio 15.9 (10-20); Creatinine Clr Calc Pharmacy 50.3 ml/min; Est GFR (Non-African American) 87.1 ml/min
[2022-07-25 07:14] LABS: Thyroid Stimulating Hormone 5.958 uIu/ml (0.300-4.500)
[2022-07-25 08:27] LABS: T4 Free Thyroxine 0.86 ng/dl (0.61-1.60)
--- NOTE | 2022-07-25 14:05 | Communication Note ---
Date of Service: July 25, 2022 case reviewed briefly [address] Dr[address] Arteaga. Dr. Kulkarni confirmed that she was previously an ECT candidate and was willing to consider lateral transfer but did not have updated clinical re: pneumonia and current strength/medical work up. LM for Dr. Weaver. Patient refused MRI and head CT. Liaison continue rounds to support patient/. I still support trial of dopaminergic agent such as Sinemet or Ritalin. Dr. Arteaga plans to review with neuro.
--- NOTE | 2022-07-25 16:54 | Neurology Consultation ---
Date of Consultation July 25, 2022 Assessment & Plan (1) Catatonia: Plan NEUROLOGY CONSULTATION Assessment & Plan: Impression: Overall picture does suggestive of psychiatric Catatonia condition. NO suggestion of neuroleptic malignant syndrome. No suggestion of Parkinson disease or Lewy body dementia as pt lacks many core features. The quinones points to remember is that she appears to have lack of motivation and when pressured, she will participate. And clinically does not appears to be have CAFE OPERATOR localizing exam findings. Not all pts with catatonia will respond to benzo therapy. Recommendations: -i do not see clear need for imaging again from neurology stand point. I will defer to psychiatry for ongoing planning for tx, trial of dopamine med is reasonable and i have no objection. pt was scheduled to have ECT interview today but cancelled due to hospitalization, ECT maybe the next step in tx. I do not feel she has dementia at this point. not much else to add from neurology. Dr. Angel Casey MD [facility] Neurology Chief Complaint: catatonia History of Present Illness: HPI: asked to evaluate pt for neurology opinion on her catatonia and potential other neurological disorders. chart reviewed. pt today in bed and able to follow command well and makes few conversation and interact. pt does appears lack of motivation to participate. pt currently being tx for aspiration pneumonia. pt's prior CT head and mri brain several years ago was stable. upon review of chart, pt does have prior admission multiple times for similar events and was also documented to have affective disorder with trying to act out fainting. overall appears comfortable. Admission/Initial HPI documentation: Nwe Weaver is a 76-year-old female with past medical history significant for generalized anxiety disorder and major depressive disorder disorder with history of episodes of catatonia, and dementia who is presenting today for weakness. Patient is very guarded at bedside and provides very limited history. She states she has been feeling weak due to vomiting over the past couple days but denies any fever, chills, abdominal pain, nausea, diarrhea, constipation, melena, hematochezia. She feels she has been eating well and drinking well but sometimes food does come back up after eating. Patient did not report this today, but per ED provider she did feel so weak today that she collapsed to the ground, but did not lose consciousness or hit her head. Since the episode, she has been in a catatonic state per this often happens where she will not move or speak. At baseline, patient is physically capable of walking several miles a day which she does often with her . On exam, the patient does not appear to be in any distress. Vital signs remarkable for tachycardia to the 100s, BP mildly hypertensive 145/79, afebrile and not hypoxic. Labs notable for White count of 15 with left shift, lactate 2.2, procalcitonin 0.28. No electrolyte abnormalities, CK 79, renal function at baseline, without LFT elevation. COVID/flu/RSV negative. CXR shows faint airspace opacities in the right lower lung, KUB shows nonobstructive bowel gas pattern. Past Medical History: See chart Meds: See chart I personally reviewed all of the medications Social & Family History: See chart Review of Systems: Per initial HPI on admission. Physical Exam: GEN: NAD HEENT: Normocephalic Neuro: Mental status:Alert, follows command well. pt thought Aman was president, knew location and . not sure of month or year, unclear if she does not want to answer.No dysarthria or aphasia.No neglect. Fluent speech. No apraxia Cranial Nerves:II-XII intact Motor:diffuse muscle atrophy that appears to be due to malnurition. no tremors noted. tone was slightly increase but no clear cogwheel rigidity. 5-/5 t/o b/l. moves all limbs well when pressured. Coordination:Intact grossly. Reflexes: down going toes campbell Sensation: Intact x 4 extremities to touch Chart reviewed I have spent more than 50% educating patient about potential diagnosis and neurological evaluation and coordinating care with patient's treatment team. Total time spent (including chart review and coordination of care): 80 min (this includes chart review). History of Present Illness Attending Physician: Doug Arteaga Allergies Allergy/AdvReac Type Severity Reaction Status Date / Time lincomycin Allergy Unknown HIVES Verified 07/20/22 18:21 nitrofurantoin Allergy Unknown HIVES Verified 07/20/22 18:21 Sulfa (Sulfonamide Allergy Unknown HIVES Verified 07/20/22 18:21 Antibiotics) Home Medications Medication Instructions Recorded Confirmed Type galantamine 12 mg tablet 12 mg PO BID 07/20/22 07/20/22 History lorazepam 0.5 mg tablet 0.5 mg PO QID 07/20/22 07/20/22 History amoxicillin 600 mg-potassium 5 ml PO BID 7 days #70 mL 07/22/22 Rx clavulanate 42.9 mg/5 mL oral suspension Patient History Medical History (Updated 07/25/22 @ 05:27 by Doug Arteaga) Abdominal pain Abnormal urinalysis Bronchitis Chest pain Confusion Decreased responsiveness Dementia DVT prophylaxis Elevated TSH Fracture of multiple ribs of both sides JORGE (generalized anxiety disorder) . HTN (hypertension) IBS (irritable bowel syndrome) Major depressive disorder, recurrent episode, severe with catatonia Pneumonia Pulmonary nodules Stomach problems T12 compression fracture UTI (urinary tract infection) Surgical History H/O dilation and curettage Previous section x2 Family History Sister Diabetes Father Liver cancer Mother CHF (congestive heart failure) Daughter Bipolar disorder Daughter Depression Social History Smoking Status: Never smoker Hx Alcohol Use: No Hx Substance Use: No Preferred Language: [place] Communication Ability: Impaired Communication Ability Comment: answers a few questions but refuses to answer most Visual Impairment: No Limitations Hearing Ability: Normal Supervisor Electronics Processing Required: No Beliefs That Will Affect Care: None marital status: Current Living Situation: Spouse current occupational status: retired Other Information That Helps Us Care for You: No Feels Safe at Home: Yes Safety Concerns: Feels Safe At This Time Assistive Devices: Glasses Results & Data ([facility]) Vital Signs (Past 12 Hours) Vital Signs Temp Pulse Pulse Resp BP BP Pulse Ox 07/25/22 16:02 37.5 C 78 19 126/71 99 07/25/22 15:52 83 07/25/22 10:57 37.3 C 82 14 122/71 96 07/25/22 07:49 87 07/25/22 07:40 36.6 C 81 14 133/76 97 07/25/22 06:11 88 O2 Del Method 07/25/22 16:02 Room Air 07/25/22 15:52 07/25/22 10:57 Room Air 07/25/22 07:49 07/25/22 07:40 Room Air 07/25/22 06:11
[2022-07-25] MEDS: ENOXAPARIN INJ 40 MG/0.4 ML SYR SQ SCH (19:35)
--- NOTE | 2022-07-25 22:17 | Hospitalist Progress Note ---
Date of Service July 25, 2022 Assessment & Plan (1) Aspiration pneumonia of right lower lobe due to vomit: Plan: Had been vomiting at home prior to presentation. Presumed aspiration pneumonia. Day #5 of unasyn. STOP IV unasyn. Change to PO augmentin x 2 days starting tomorrow AM. Remains stable in room air. Seen by speech therapy - cleared for diet, no diet modification advised. (2) Acute dehydration: Plan: Present on admission. Resolved with IV fluids. Eating has improved. (3) Dementia: Plan: question of. has had confusion throughout the visit; uncertain if this is simply encephalopathy from #1 or is there cognitive impairment. Ordered MRI brain but patient declined; refused to leave her hospital room for such. Neurology consult obtained; neurology does not feel there is a dementia process. Consider neuropsych eval as outpatient. "reversible" causes of memory/cognitive issues including TSH,B1,B12 ordered. TSH mildly high, and has had high levels previously -- will start synthroid. B1 level pending - start thiamine 200mg daily empirically. B12 level wnl. (4) Major depressive disorder, recurrent episode, severe with catatonia: Plan: Follows with Dr Tee in [place]. Has been taking ativan QID scheduled for some time for concern for catatonia. There has been discussion about whether to pursue ECT treatments in [place] for suspected catatonia. Appreciate Dr Anna's consult. ?akinetic mutism? ?true catatonia? ?dementia? Ativan has been weaned off. Dr Anna suggesting a trial of sinemet for ?akinetic mutism? Thus, start sinemet 25/100mg - 1/2 tab TID. Start this tomorrow am. Appreciate psych consult. (5) JORGE (generalized anxiety disorder): (6) Underweight: Plan: BMI <18 due to #3, #4? (7) Incomplete bladder emptying: Plan: seen by urology they recommended to try and avoid gavin for now timed voids advised follow (8) Elevated TSH: Plan: Multiple TSH levels in 2018 and 2019 were high TSH mildly high again today FT4 is borderline low start synthroid (9) Hypothyroidism: Plan: start synthroid 25mcg daily repeat TSH 6 weeks as outpatient (10) Adnexal cyst: Plan: right -- has enlarged over time; previously measured 44 x 49 mm, now measures 72 x 54 mm need to d/w whether to pursue any w/u for this if this is malignant it could be contributing to chronic failure to thrive Plan DVT proph - lovenox has made progress with eating/drinking and walking over the last 48 hours d/c home 07/26 if tolerates sinemet?? will need neuro f/u with [facility] as well as Psychiatry updated at bedside care d/w psych & neurology Admission and Anticipated Discharge Date Admission Date: July 20, 2022 Subjective no major issues overnight she is walking better per staff appetite also improved when she is asked to sit in the chair ( has been requesting OOB to chair frequently) she quickly states she wants to return to bed during my visit she was leaning to the right in bed denied any complaints at bedside we discussed plan of care (neurology visit, trial of sinemet, etc) we discussed that she refused her head imaging (MRI Brain) Review of Systems Review of Systems: general - fatigue cardio - denies chest pain pulm - no cough, no dyspnea GI - no vomiting (had such at home prior to admission) Physical Exam Physical Exam: gen - thin, frail, talks very softly; laying in bed; comfortable mouth - MMM neck - no JVD heart - RRR, s1 s2, no murmur lungs - CTA b/l except mild rales RLL (no change) abd - soft NT ND BS+ ext - no edema, pulses 2+ b/l neuro - muscle atrophy of Left thigh muscles noted; tone increased in b/l LEs psych - flat affect Results & Data Results & Data ([facility]) Vital Signs (Past 12 Hours) Vital Signs Temp Pulse Pulse Resp BP Pulse Ox O2 Del Method 07/25/22 19:20 37.3 C 81 18 139/69 97 Room Air 07/25/22 16:02 37.5 C 78 19 126/71 99 Room Air 07/25/22 15:52 83 07/25/22 10:57 37.3 C 82 14 122/71 96 Room Air Laboratory Results Laboratory Results - last 24 hr 07/25/22 07/25/22 07/25/22 06:06 06:06 06:06 Sodium 139 Potassium 3.8 Chloride 110 H Carbon Dioxide 26 Anion Gap 3 BUN 10 Creatinine 0.63 Est Cr Clr Drug Dosing 50.3 Est GFR ( Amer) 101.0 Est GFR (Non-Af Amer) 87.1 BUN/Creatinine Ratio 15.9 Glucose 93 Calcium 8.4 L Vitamin B1 Vitamin B12 411 TSH 5.958 H Free T4 0.86 07/25/22 06:06 Sodium Potassium Chloride Carbon Dioxide Anion Gap BUN Creatinine Est Cr Clr Drug Dosing Est GFR ( Amer) Est GFR (Non-Af Amer) BUN/Creatinine Ratio Glucose Calcium Vitamin B1 Pending Vitamin B12 TSH Free T4 PG Care Time/CCT Total # of Minutes Spent Total Time Spent with Patient: Total time spent is greater than 50% in coordination of care (as documented) at patient's floor/unit and/or counseling patient: Coding Level of Care Code 23609 SUB INP/OBS CARE 3/50MIN Diagnoses Aspiration pneumonia of right lower lobe due to vomit J69.0 Acute dehydration E86.0 Dementia F03.90 Major depressive disorder, recurrent episode, severe with catatonia F33.2; F06.1 JORGE (generalized anxiety disorder) F41.1 Underweight R63.6 Incomplete bladder emptying R33.9 Elevated TSH R79.89 Hypothyroidism E03.9 Adnexal cyst N94.9
[2022-07-26] MEDS: LEVOTHYROXINE SODIUM 25 MCG TABLET PO SCH (05:32)
[2022-07-26] MEDS: [UNRECOGNIZED DRUG - REMARK] SCH ×3 (08:33→23:45)
[2022-07-26] MEDS ORDERED: CARBIDOPA/LEVODOPA 25/100MG TAB PO SCH (09:00)
[2022-07-26] MEDS: CARBIDOPA/LEVODOPA 25/100MG TAB PO SCH ×3 (09:30→20:25)
[2022-07-26] MEDS: THIAMINE HCL 100 MG TAB PO SCH (09:30)
[2022-07-26] MEDS: AMOXICILLIN/CLAVULANATE 500 MG TAB PO SCH ×2 (09:30→18:28)
--- NOTE | 2022-07-26 15:50 | Communication Note ---
Date of Service: July 26, [address] Spencer who is assuming clinical responsibility for consult service, liaison, and Dr. Kulkarni at [facility] as was cosidering ECT. Per liaison remains concerned about her direct care/amount of time in bed. Dr. Kulkarni confirmed that she is not an immediate candidate for ECT, particularly on lateral transfer, given her aspiration pneumonia, physical deconditioning and current nursing assessments. Discussed issues related to consent, to prepare for any aftercare planning as unclear he was aware that son is POA. Per Dr. Kulkarni, if patient is unable to consent, any POA/guardianship would have to specify ability to consent for ECT or a court order would need to be obtained which is exceedingly rare. I have not reviewed the POA on her paper chart at this time but my understanding is that is a standard document without such a specification and that it is dated 2019 with comments on need for yearly updates. Reviewed that patient does not appear to have any delirium but had misidentified the year and even her to Dr. Arteaga, typically doesn't engage with me to level that I could perform a MoCA but certainly that could be obtained as she improves.
--- NOTE | 2022-07-26 16:12 | Psychiatric Progress Note ---
Date of Service July 26, 2022 Impression / Recommendations Impression I was able to speak today with pt's . Unfortunately, he is not a consistent informant. For example, he made reference to her worsened gait but when I mentioned this later he insisted her gait had not worsened (then gave his hypothesis that it was worse because "she's been spending 24 [sic] hours and 50 minutes a day in bed"). He wonders if she might have acquired cerebral palsy. In my opinion, pt exhibits several fairly clear signs of parkinsonism, though I somewhat doubt she has idiopathic Parkinson's disease. One possibility is a more diffuse Lewy body syndrome, which can cause parkinsonian symptoms as well as rapidly-worsening dementia that often affects executive function and higher reasoning more than memory. Many people with such conditions exhibit seemingly paradoxical reactions to "tranquilizers" (antipsychotics and sedative- hypnotics). The best responses are typically seen with cholinesterase inhibitors or dopaminergic agents. Of those approaches, the former is very slow and diffic ult to assess response, while the latter usually lead to rapid responses and more clear response or lack thereof. By my observations today I was not able to assess her mood or cognition given her near-complete lack of speech today and her lack of discernible affect (which could, in itself, be a symptom). I note that she received low-dose carbidopa/levodopa yesterday and a little larger dose today. While by my observation she exhibits parkinsonism today, I have not seen her before and a nurse who has been following her was present with me and thought her gait noticeably improved. While there are varying working definitions of "catatonia", some of which pt would appear to meet, her recent history and presentation are also inconsistent both over time and in terms of internal consistency of her 's reports and don't fully fit with commonly-accepted conceptualizations of catatonia. I believe she is most likely very depressed, based on her history and on previous notes, and that depression should remain a focus of treatment efforts. Little benefit has been apparent attributable to the lorazepam. It is hard for me to picture her 's being able to meet her care needs at home, yet he asked if she could be discharged right away. While I believe returning home will likely not be in her best interest, there may be little we can do to prevent that. (1) Catatonia: cryptogenic. Suggest continuing levodopa/carbidopa trial (2) Aspiration pneumonia of right lower lobe due to vomit: (3) Acute dehydration: (4) Dementia: likely not typical Alzheimer-type, possibly due to Lewy bodies. Suggest continuing galantamine. Will need to clarify legal status (guardianship is unclear) Plan 07/26/22: Recommend continuing trial of levodopa/carbidopa as currently ordered. Continue galantamine. Continue taper of lorazepam (due to lack of clear benefit and possible paradoxical response) In addition to anatomical brain imaging, functional brain imaging (PET or SPECT) would likely be useful in clarifying the diagnosis but may not be practical to obtain. 07/24/21: Dr. Tee updated. LM for Dr. Kulkarni re: appointment scheduled for 07/25 and desire to coordinate care. Will continue Ativan taper as patient typically doses every other day outside of the hospital so low risk withdrawal despite length of rx. Discussed pros/cons of Sinemet vs Ritalin with Dr. Arteaga and agreeable to MRI. 07/23/22: decreased Ativan to 0.5 mg TID prior to lunch time dose and will continue to taper. Note Galantamine is off label per Dr. Tee for residual catatonia, non-formulary but is ordered here. Will contact Dr. Kulkarni office re: input around ongoing candidacy for ECT. service reviewed PT/OT assessments. 07/22/22: appears that d/c was cancelled by hospitalist service in favor of PT/OT assessment and further monitoring of interactions with as nursing on floor reportedly witnessed forcing her to eat/drink when she did not want to and ambulation seemed unsafe for navigating stairs at home. If not improvement tomorrow on higher dose of Ativan will likely taper. Somewhat atypical presentation of catatonia, would be difficult to differentiate from akinetic mutism. otherwise no psych hx prior to [address] Tee and therefore limited antidepressant trials. Cognitive baseline is unclear. 07/21/22: due to recent issues with Vomit and swallow and IV access will shift dosing of Ativan to 1 mg TID before meals. Monitor as fall risk if does respond and is more active. EEG likely low yield I do not see recent head imaging, would eralley now be required prior to initiation of ECT to rule out acute neurologic event as contributing factor, last MRI appears 2017 and would be more specific in differential from a psych standpoing than head CT but defer to hospitalist service. some features of her catatonia are atypical in that episodes don't clearly correlate with depression and typically lacks posturing or waxy flexibility, mainly severe abulia Dr. Tee notified for coordination of care Suicide Risk Level Suicide Risk Level Comments: Does not appear to pose any significant current suicide risk Interval History Identifying Information 76 yo female, lives with in [place], outpatient of Dr. Tee at [facility], admit medically 07/20/22 following an event. Consult is by hospitalist service for catatonia, initial consult completed on 07/21/22. Chief Complaint Pt offered no complaints Subjective Subjective Patient was seen & assessed and interval progress reviewed with her Physical Exam Mental Examination Appearance: Disheveled Eye Contact: No Eye Contact Motor Behavior: Slowed, Unsteady (gait, as if her feet were stuck to the floor) and Tremulous (with her right thumb apposed with her right index and second fingers, displaying an intermittent rhythmic tremor) Speech: Nonverbal Affect: Flat Psychiatric Orientation: oriented to person Eye Contact: + poor eye contact Speech: + abnormal rate/rhythm/volume of speech (paucity) Affect: + flat affect can't be directly assessed due to her very limited speech can't be directly assessed due to her very limited speech can't be directly assessed due to her very limited speech can't be directly assessed due to her very limited speech can't be directly assessed due to her very limited speech can't be directly assessed due to her very limited speech, but behavior does suggest that she's experiencing any appears slowed While the patient could be led by the physical therapist or her , she showed scant signs of any spontaneous movement Vital Signs (Past 24 Hours) Last Vital Signs Temp 36.7 C 07/26/22 11:20 Pulse 78 07/26/22 15:11 Resp 20 07/26/22 11:20 BP 132/58 L 07/26/22 11:20 Pulse Ox 96 07/26/22 11:20 O2 Del Method 07/26/22 11:20 Results & Data ([facility]) Current Inpatient Medications Current Inpatient Medications: Current Inpatient Medications Acetaminophen (Acetaminophen 325 Mg Tab) 650 mg PO Q4H PRN PRN Reason: Pain or Fever Stop: 08/19/22 21:04 Amoxicillin/Clavulanate Potassium (Amoxicillin/Clavulanate 500 Mg Tab) 1 tab PO BIDM [facility] Stop: 07/28/22 07:59 Last Admin: 07/26/22 09:30 Dose: 1 tab Carbidopa/Levodopa (Carbidopa/Levodopa 25/100mg Tab) 0.5 tab PO TID [facility] Stop: 08/25/22 08:59 Last Admin: 07/26/22 13:28 Dose: 0.5 tab Enoxaparin Sodium (Enoxaparin Inj 40 Mg/0.4 Ml Syr) 40 mg SQ Q24H [facility] Stop: 08/19/22 21:29 Last Admin: 07/25/22 19:35 Dose: 40 mg Levothyroxine Sodium (Levothyroxine Sodium 25 Mcg Tablet) 25 mcg PO DAILYBB [facility] Stop: 08/25/22 06:29 Last Admin: 07/26/22 05:32 Dose: 25 mcg Miscellaneous (Galantamine~Order Awaiting Action) 1 each N/A QS [facility] Stop: 08/20/22 00:00 Last Admin: 07/26/22 08:33 Dose: Not Given Ondansetron HCl (Ondansetron Inj 2 Mg/Ml 2 Ml Vial) 4 mg IV Q6H PRN PRN Reason: Nausea Stop: 08/19/22 21:04 Polyethylene Glycol (Polyethylene (Miralax) 17 Gm Pack) 17 gm PO DAILY PRN PRN Reason: Constipation Stop: 08/19/22 21:04 Thiamine HCl (Thiamine Hcl 100 Mg Tab) 200 mg PO QAM [facility] Stop: 08/25/22 08:59 Last Admin: 07/26/22 09:30 Dose: 200 mg
[2022-07-26] MEDS ORDERED: LORazepam 2 MG/1 ML VIAL IV ONE (17:27)
--- NOTE | 2022-07-26 18:32 | Hospitalist Progress Note ---
Date of Service July 26, 2022 Assessment & Plan (1) Aspiration pneumonia of right lower lobe due to vomit: Plan: Had been vomiting at home prior to presentation. Presumed aspiration pneumonia. Day #5 of unasyn. STOP IV unasyn. Change to PO augmentin x 2 days starting tomorrow AM. Remains stable in room air. Seen by speech therapy - cleared for diet, no diet modification advised. (2) Acute dehydration: Plan: Present on admission. Resolved with IV fluids. Eating has improved. (3) Dementia: Plan: question of. has had confusion throughout the visit; uncertain if this is simply encephalopathy from #1 or is there cognitive impairment. Ordered MRI brain but patient declined; refused to leave her hospital room for such. Neurology consult obtained; neurology does not feel there is a dementia process. Consider neuropsych eval as outpatient. "reversible" causes of memory/cognitive issues including TSH,B1,B12 ordered. TSH mildly high, and has had high levels previously -- will start synthroid. B1 level pending - start thiamine 200mg daily empirically. B12 level wnl. (4) Major depressive disorder, recurrent episode, severe with catatonia: Plan: Follows with Dr Tee in [place]. Has been taking ativan QID scheduled for some time for concern for catatonia. There has been discussion about whether to pursue ECT treatments in [place] for suspected catatonia. Appreciate Dr Anna's consult. ?akinetic mutism? ?true catatonia? ?dementia? Ativan has been weaned off. Dr Anna suggesting a trial of sinemet for ?akinetic mutism? Thus, start sinemet 25/100mg - 1/2 tab TID. Start this tomorrow am. Appreciate psych consult. (5) JORGE (generalized anxiety disorder): (6) Underweight: Plan: BMI <18 due to #3, #4? (7) Incomplete bladder emptying: Plan: seen by urology they recommended to try and avoid gavin for now timed voids advised follow (8) Elevated TSH: Plan: Multiple TSH levels in 2018 and 2019 were high TSH mildly high again today FT4 is borderline low start synthroid (9) Hypothyroidism: Plan: start synthroid 25mcg daily repeat TSH 6 weeks as outpatient (10) Adnexal cyst: Plan: right -- has enlarged over time; previously measured 44 x 49 mm, now measures 72 x 54 mm need to d/w whether to pursue any w/u for this if this is malignant it could be contributing to chronic failure to thrive Plan DVT proph - lovenox has made progress with eating/drinking and walking over the last 48 hours d/c home 07/26 if tolerates sinemet?? will need neuro f/u with [facility] as well as Psychiatry updated at bedside care d/w psych & neurology Admission and Anticipated Discharge Date Admission Date: July 20, 2022 Subjective no major issues overnight she is walking better per staff appetite also improved when she is asked to sit in the chair ( has been requesting OOB to chair frequently) she quickly states she wants to return to bed during my visit she was leaning to the right in bed denied any complaints at bedside we discussed plan of care (neurology visit, trial of sinemet, etc) we discussed that she refused her head imaging (MRI Brain) Physical Exam Physical Exam: gen - thin, frail, talks very softly; laying in bed; comfortable mouth - MMM neck - no JVD heart - RRR, s1 s2, no murmur lungs - CTA b/l except mild rales RLL (no change) abd - soft NT ND BS+ ext - no edema, pulses 2+ b/l neuro - muscle atrophy of Left thigh muscles noted; tone increased in b/l LEs psych - flat affect Constitutional: comfortable; no acute distress Respiratory: normal respiratory effort; no respiratory distress and no labored breathing Cardiovascular: Extremities: no pedal edema Gastrointestinal (Abdomen): Inspection/Auscultation: abdomen normal to inspection; abdomen not distended Musculoskeletal: Head/Neck/Chest: normocephalic and head atraumatic Neurologic: awake Psychiatric: Orientation: alert and oriented to person Eye Contact: + poor eye contact Motor Behavior: no abnormal motor movements Speech: + abnormal rate/rhythm/volume of speech (paucity) Affect: + depressed affect and + flat affect Mood: + depressed mood (though patient unable to verbalize) Genitourinary: no CVA tenderness Results & Data Results & Data ([facility]) Vital Signs (Past 12 Hours) Vital Signs Temp Pulse Pulse Resp BP Pulse Ox O2 Del Method 07/26/22 16:16 36.9 C 81 19 145/77 H 99 Room Air 07/26/22 15:11 78 07/26/22 08:00 65 07/26/22 11:20 36.7 C 76 20 132/58 L 96 Room Air 07/26/22 08:30 36.9 C 73 19 133/63 97 Room Air PG Care Time/CCT Total # of Minutes Spent Total Time Spent with Patient: Total time spent is greater than 50% in coordination of care (as documented) at patient's floor/unit and/or counseling patient: Coding Level of Care Code 11438 SUB INP/OBS CARE 2/35MIN Diagnoses Aspiration pneumonia of right lower lobe due to vomit J69.0 Acute dehydration E86.0 Dementia F03.90 Major depressive disorder, recurrent episode, severe with catatonia F33.2; F06.1 JORGE (generalized anxiety disorder) F41.1 Underweight R63.6 Incomplete bladder emptying R33.9 Elevated TSH R79.89 Hypothyroidism E03.9 Adnexal cyst N94.9
--- NOTE | 2022-07-26 18:46 | Hospitalist Progress Note ---
Date of Service July 26, 2022 Assessment & Plan (1) Aspiration pneumonia of right lower lobe due to vomit: Plan: Had been vomiting at home prior to presentation. Presumed aspiration pneumonia. Day #5 of unasyn. STOP IV unasyn. Change to PO augmentin x 2 days starting tomorrow AM. Remains stable in room air. Seen by speech therapy - cleared for diet, no diet modification advised. (2) Acute dehydration: Plan: Present on admission. Resolved with IV fluids. Eating has improved. (3) Dementia: Plan: question of. has had confusion throughout the visit; uncertain if this is simply encephalopathy from #1 or is there cognitive impairment. MRI is ordered, discussed with the who happens to be medical power power of claim attorney, agreed to proceed with MRI please sedate the patient with lorazepam prior to MRI Appreciate neurology input Appreciate psychiatry input, continue Sinemet "reversible" causes of memory/cognitive issues including TSH,B1,B12 ordered. TSH mildly high, and has had high levels previously -- will start synthroid. B1 level pending - start thiamine 200mg daily empirically. B12 level wnl. (4) Major depressive disorder, recurrent episode, severe with catatonia: Plan: Follows with Dr Tee in [place]. Has been taking ativan QID scheduled for some time for concern for catatonia. There has been discussion about whether to pursue ECT treatments in [place] for suspected catatonia. Appreciate Dr Anna's consult. ?akinetic mutism? ?true catatonia? ?dementia? Ativan has been weaned off. Dr Anna suggesting a trial of sinemet for ?akinetic mutism? Thus, start sinemet 25/100mg - 1/2 tab TID. Start this tomorrow am. Appreciate psych consult. (5) JORGE (generalized anxiety disorder): (6) Underweight: Plan: BMI <18 due to #3, #4? (7) Incomplete bladder emptying: Plan: seen by urology they recommended to try and avoid gavin for now timed voids advised follow (8) Elevated TSH: Plan: Multiple TSH levels in 2018 and 2019 were high TSH mildly high again today FT4 is borderline low start synthroid (9) Hypothyroidism: Plan: start synthroid 25mcg daily repeat TSH 6 weeks as outpatient (10) Adnexal cyst: Plan: right -- has enlarged over time; previously measured 44 x 49 mm, now measures 72 x 54 mm need to d/w whether to pursue any w/u for this if this is malignant it could be contributing to chronic failure to thrive Plan DVT proph - lovenox has made progress with eating/drinking and walking over the last 48 hours d/c home 07/26 if tolerates sinemet?? will need neuro f/u with [facility] as well as Psychiatry updated at bedside care d/w psych & neurology Admission and Anticipated Discharge Date Admission Date: July 20, 2022 Subjective no major issues overnight she is walking better per staff appetite also improved when she is asked to sit in the chair ( has been requesting OOB to chair frequently) she quickly states she wants to return to bed during my visit she was leaning to the right in bed denied any complaints at bedside we discussed plan of care (neurology visit, trial of sinemet, etc) we discussed that she refused her head imaging (MRI Brain) Review of Systems Review of Systems: general - fatigue cardio - denies chest pain pulm - no cough, no dyspnea GI - no vomiting (had such at home prior to admission) Results & Data Results & Data ([facility]) Vital Signs (Past 12 Hours) Vital Signs Temp Pulse Pulse Resp BP Pulse Ox O2 Del Method 07/26/22 16:16 36.9 C 81 19 145/77 H 99 Room Air 07/26/22 15:11 78 07/26/22 08:00 65 07/26/22 11:20 36.7 C 76 20 132/58 L 96 Room Air 07/26/22 08:30 36.9 C 73 19 133/63 97 Room Air PG Care Time/CCT Total # of Minutes Spent Total Time Spent with Patient: Total time spent is greater than 50% in coordination of care (as documented) at patient's floor/unit and/or counseling patient: Coding Level of Care Code 09023 SUB INP/OBS CARE 2/35MIN Diagnoses Aspiration pneumonia of right lower lobe due to vomit J69.0 Acute dehydration E86.0 Dementia F03.90 Major depressive disorder, recurrent episode, severe with catatonia F33.2; F06.1 JORGE (generalized anxiety disorder) F41.1 Underweight R63.6 Incomplete bladder emptying R33.9 Elevated TSH R79.89 Hypothyroidism E03.9 Adnexal cyst N94.9
[2022-07-26] MEDS: ENOXAPARIN INJ 40 MG/0.4 ML SYR SQ SCH (20:24)
--- NOTE | 2022-07-26 21:02 | Magnetic Resonance Report ---
MR brain wo con HISTORY: 76 years-old Female AMS acutely altered mental status COMPARISON: Brain MRI 05/25/2018 TECHNIQUE: Multiplanar multisequence MRI of the brain was obtained without the use of IV contrast. FINDINGS: Telephone Collector localizer images demonstrate no gross extracranial abnormality. No restricted diffusion. [place]lin e structures appear unremarkable. Motion degraded exam. Degenerative changes of the imaged cervical s pine. No acute intracranial hemorrhage, midline shift, abnormal extra-axial collection, hydrocephalus or intra-axial mass. Involutional changes with mild T2/FLAIR hyperintense foci throughout the white matter. No pathologic blooming artifact. Asymmetry of the extra-axial space lateral to the left cereb ellar hemisphere redemonstrated. An underlying arachnoid cyst may be present. This appears unchanged from the prior exam. Skull, orbits and soft tissues are unremarkable. Cerebral venous sinuses and major arterial flow void s appear patent. IMPRESSION: 1. No acute intracranial abnormality. No acute or subacute infarct. 2. Involutional changes with mild chronic microvascular ischemic disease. ACT 112: Negative or not required by law. The above report was generated using voice recognition software. It may contain grammatical, syntax o r spelling errors. Electronically signed by: Jose Rafael Ventura M.D. 07/26/2022 9:00 PM
[2022-07-27] MEDS: LEVOTHYROXINE SODIUM 25 MCG TABLET PO SCH (05:57)
[2022-07-27] MEDS: AMOXICILLIN/CLAVULANATE 500 MG TAB PO SCH ×2 (10:24→16:44)
[2022-07-27] MEDS: CARBIDOPA/LEVODOPA 25/100MG TAB PO SCH ×3 (10:24→19:47)
[2022-07-27] MEDS: THIAMINE HCL 100 MG TAB PO SCH (10:25)
[2022-07-27] MEDS: [UNRECOGNIZED DRUG - REMARK] SCH ×3 (10:26→22:39)
--- NOTE | 2022-07-27 17:57 | Hospitalist Progress Note ---
Date of Service July 27, 2022 Assessment & Plan (1) Aspiration pneumonia of right lower lobe due to vomit: Plan: Had been vomiting at home prior to presentation. Patient treated as a case of aspiration pneumonia with Zosyn and Augmentin, complete the course of treatment (2) Acute dehydration: Plan: Present on admission. Resolved with IV fluids. Eating has improved. (3) Dementia: Plan: question of. has had confusion throughout the visit; uncertain if this is simply encephalopathy from #1 or is there cognitive impairment. Of the brain is unremarkable no evidence of ongoing infectious process at this point, apparently patient suffering from severe depression and she was a candidate for ECT treatment before admission to the hospital, neurology is on the patient this is most likely depression and mood disorder however psychiatry is more inclined toward Parkinson disease or type of dementia with parkinsonian features like Lewy body dementia, currently on Sinemet. The patient refused taking Sinemet, her decided to take her home tomorrow or on Sunday (4) Major depressive disorder, recurrent episode, severe with catatonia: Plan: Follows with Dr Tee in [place]. Has been taking ativan QID scheduled for some time for concern for catatonia. There has been discussion about whether to pursue ECT treatments in [place] for suspected catatonia. Benzodiazepine discontinued by psychiatry recommended (5) JORGE (generalized anxiety disorder): (6) Underweight: Plan: BMI <18 due to #3, #4? (7) Incomplete bladder emptying: Plan: seen by urology they recommended to try and avoid gavin for now timed voids advised follow (8) Elevated TSH: Plan: Multiple TSH levels in 2018 and 2019 were high TSH mildly high again today FT4 is borderline low start synthroid (9) Hypothyroidism: Plan: start synthroid 25mcg daily repeat TSH 6 weeks as outpatient (10) Adnexal cyst: Plan: right -- has enlarged over time; previously measured 44 x 49 mm, now measures 72 x 54 mm need to d/w whether to pursue any w/u for this if this is malignant it could be contributing to chronic failure to thrive Plan DVT proph - lovenox has made progress with eating/drinking and walking over the last 48 hours d/c home 07/26 if tolerates sinemet?? will need neuro f/u with [facility] Neurology as well as Psychiatry updated at bedside care d/w psych & neurology Admission and Anticipated Discharge Date Admission Date: July 20, 2022 Subjective No acute issues overnight, MRI of the brain was unremarkable, patient currently on Sinemet as per the psychiatry recommendation, however the family refused to take Sinemet, had a 's inclining to work the impression that have 5 has depression is indicative to be just 2, she benefits according to him from ECT, the patient is not in agreement with psychiatry recommendation, would like to take home tomorrow or day after tomorrow Physical Exam Physical Exam: gen - thin, frail, talks very softly; laying in bed; comfortable mouth - MMM neck - no JVD heart - RRR, s1 s2, no murmur lungs - CTA b/l except mild rales RLL (no change) abd - soft NT ND BS+ ext - no edema, pulses 2+ b/l neuro - muscle atrophy of Left thigh muscles noted; tone increased in b/l LEs psych - flat affect Constitutional: comfortable; no acute distress Respiratory: normal respiratory effort; no respiratory distress and no labored breathing Cardiovascular: Extremities: no pedal edema Gastrointestinal (Abdomen): Inspection/Auscultation: abdomen normal to inspection; abdomen not distended Musculoskeletal: Head/Neck/Chest: normocephalic and head atraumatic Neurologic: awake Psychiatric: Orientation: alert and oriented to person Eye Contact: + poor eye contact Motor Behavior: no abnormal motor movements Speech: + abnormal rate/rhythm/volume of speech (paucity) Affect: + depressed affect and + flat affect Mood: + depressed mood (though patient unable to verbalize) Genitourinary: no CVA tenderness Results & Data Results & Data ([facility]) Vital Signs (Past 12 Hours) Vital Signs Temp Pulse Pulse Resp BP Pulse Ox O2 Del Method 07/27/22 15:21 78 07/27/22 14:39 37.0 C 82 20 137/76 99 Room Air 07/27/22 11:33 37.2 C 80 20 124/67 100 Room Air 07/27/22 10:30 Room Air 07/27/22 09:42 75 07/27/22 07:41 36.5 C 70 22 128/74 98 Room Air PG Care Time/CCT Total # of Minutes Spent Total Time Spent with Patient: Total time spent is greater than 50% in coordination of care (as documented) at patient's floor/unit and/or counseling patient: Coding Level of Care Code 60186 SUB INP/OBS CARE MIN Diagnoses Aspiration pneumonia of right lower lobe due to vomit J69.0 Acute dehydration E86.0 Dementia F03.90 Major depressive disorder, recurrent episode, severe with catatonia F33.2; F06.1 JORGE (generalized anxiety disorder) F41.1 Underweight R63.6 Incomplete bladder emptying R33.9 Elevated TSH R79.89 Hypothyroidism E03.9 Adnexal cyst N94.9
[2022-07-27] MEDS: ENOXAPARIN INJ 40 MG/0.4 ML SYR SQ SCH (19:47)
[2022-07-28] MEDS: LEVOTHYROXINE SODIUM 25 MCG TABLET PO SCH (05:15)
[2022-07-28] MEDS: CARBIDOPA/LEVODOPA 25/100MG TAB PO SCH (09:06)
[2022-07-28] MEDS: THIAMINE HCL 100 MG TAB PO SCH (09:06)
[2022-07-28] MEDS: [UNRECOGNIZED DRUG - REMARK] SCH (09:07)
--- NOTE | 2022-07-28 11:58 | Communication Note ---
Date of Service: July 28, 2022 interim progress reviewed in coverage for Dr. Spencer. The patient is demonstrating some response to Sinemet, ongoing evidence of low mood. Again, patient is not an immediate candidate for ECT and would need to consent. She was not really able to engage in MoCA during stay. Liaison was notified by Dr. Harris that family taking patient home momentarily. Confirmed outpatient follow up with Dr. Tee on 08/07/22 1: 30 pm. His preference is that Sinemet rx for Parkinsonian features/akinetic mutism as a contributing factor to her depression be co-managed with PCP and/or neurology. Dr. Harris updated.
--- NOTE | 2022-07-30 17:58 | Discharge Summary ---
Date of Service July 30, 2022 Admission HPI Per Admitting Provider [place] is a 76-year-old female with past medical history significant for generalized anxiety disorder and major depressive disorder disorder with history of episodes of catatonia, and dementia who is presenting today for weakness. Patient is very guarded at bedside and provides very limited history. She states she has been feeling weak due to vomiting over the past couple days but denies any fever, chills, abdominal pain, nausea, diarrhea, constipation, melena, hematochezia. She feels she has been eating well and drinking well but sometimes food does come back up after eating. Patient did not report this today, but per ED provider she did feel so weak today that she collapsed to the ground, but did not lose consciousness or hit her head. Since the episode, she has been in a catatonic state per this often happens where she will not move or speak. At baseline, patient is physically capable of walking several miles a day which she does often with her . On exam, the patient does not appear to be in any distress. Vital signs remarkable for tachycardia to the 100s, BP mildly hypertensive 145/79, afebrile and not hypoxic. Labs notable for White count of 15 with left shift, lactate 2.2, procalcitonin 0.28. No electrolyte abnormalities, CK 79, renal function at baseline, without LFT elevation. COVID/flu/RSV negative. CXR shows faint airspace opacities in the right lower lung, KUB shows nonobstructive bowel gas pattern. Principal Diagnosis Aspiration pneumonia, protein calorie malnutrition, depression versus dementia with parkinsonian features Discharge Exam gen - thin, frail, talks very softly; laying in bed; comfortable mouth - MMM neck - no JVD heart - RRR, s1 s2, no murmur lungs - CTA b/l except mild rales RLL (no change) abd - soft NT ND BS+ ext - no edema, pulses 2+ b/l neuro - muscle atrophy of Left thigh muscles noted; tone increased in b/l LEs psych - flat affect Constitutional comfortable; no acute distress Respiratory normal respiratory effort; no respiratory distress and no labored breathing Cardiovascular Extremities: no pedal edema Gastrointestinal (Abdomen) Inspection/Auscultation: abdomen normal to inspection; abdomen not distended Musculoskeletal Head/Neck/Chest: normocephalic and head atraumatic Neurologic awake Psychiatric Orientation: alert and oriented to person Eye Contact: + poor eye contact Motor Behavior: no abnormal motor movements Speech: + abnormal rate/rhythm/volume of speech (paucity) Affect: + depressed affect and + flat affect Mood: + depressed mood (though patient unable to verbalize) Genitourinary no CVA tenderness Discharge Data Allergies Allergy/AdvReac Type Severity Reaction Status Date / Time lincomycin Allergy Unknown HIVES Verified 07/20/22 18:21 nitrofurantoin Allergy Unknown HIVES Verified 07/20/22 18:21 Sulfa (Sulfonamide Allergy Unknown HIVES Verified 07/20/22 18:21 Antibiotics) Consultations 07/20/22 17:59 ED Decision to Admit Stat 07/20/22 21:05 Consult Psychiatry Routine 07/21/22 09:17 Consult Urology Routine 07/25/22 13:56 Consult Neurology Routine Ordered Studies 07/21/22 04:33 CT abd pelvis IV con only Stat 07/26/22 17:26 MRI Brain [MR brain wo con] Routine Hospital Course (1) Aspiration pneumonia of right lower lobe due to vomit: Had been vomiting at home prior to presentation. Patient treated as a case of aspiration pneumonia with Zosyn and Augmentin, complete the course of treatment (2) Acute dehydration: Present on admission. Resolved with IV fluids. Eating has improved. (3) Dementia: Upon presentation patient was encephalopathic possibly secondary to ongoing infectious process however at this point it is hard to say if the patient is suffering from severe depression or some mild dementia, patient be followed on outpatient basis by psychiatryt, apparently patient suffering from severe depression and she was a candidate for ECT treatment before admission to the hospital, neurology is on the patient this is most likely depression and mood disorder however psychiatry is more inclined toward Parkinson disease or type of dementia with parkinsonian features like Lewy body dementia, currently on Sinemet. (4) Major depressive disorder, recurrent episode, severe with catatonia: Follows with Dr Tee in [place]. Has been taking ativan QID scheduled for some time for concern for catatonia. As per psychiatry recommendation Ativan has been discontinued, patient will follow up with Dr. Montes appointment has been made, that was confirmed by psychiatric tomorrow department (5) Incomplete bladder emptying: seen by urology they recommended to try and avoid gavin for now timed voids advised (6) Elevated TSH: Multiple TSH levels in 2018 and 2019 were high TSH mildly high again today FT4 is borderline low start synthroid, patient was advised to follow-up with PCP in 6 weeks to repeat TSH (7) Hypothyroidism: start synthroid 25mcg daily repeat TSH 6 weeks as outpatient (8) Adnexal cyst: right -- has enlarged over time; previously measured 44 x 49 mm, now measures 72 x 54 mm need to d/w whether to pursue any w/u for this if this is malignant it could be contributing to chronic failure to thrive (9) Protein calorie malnutrition: Due to severe depression versus dementia with parkinsonian features Plan Follow-up patient with Dr. Tee Total Time Total Time Spent Total Time Spent (In Minutes): 45 Discharge Plan Discharge Items Patient Disposition: Home - Self-Care Reason For Visit: ASPIRATION PNEUMONIA Discharge Diagnosis: Right lower lobe aspiration pneumonia, hypovolemia, transient nausea and vomiti ng, encepalopathy Health Concerns: needs close follow up with psychiatry Activity: Resume your previous activity Lifting: Gradually increase as tolerated Bathing: No limitations Sexual Activity: When tolerated Non-emergency contact: Primary Care Provider Call non-emergency contact if: your symptoms worsen Follow-up/Referrals: [facility] [Outside] - 08/07/22 1:30 pm (In Person ) Vinh Tee MD [Physician] - (you have an appointment in August please follow with appointment ) PCP,ROBYN [Primary Care Provider] - Diet: Heart Healthy Addtl Attending Provider Instructions: One of the Tyroid tests is abnormal , your are discharged on Levothyroxine, please repeat your Thyroid function tests in one or two months Pending Studies at Discharge: No Stand-Alone Forms: [email or web address], Smoking Cessation Medications and DC Order Prescriptions: New levothyroxine [Synthroid] 25 mcg Tablet 25 mcg PO DAILYBB Qty: 90 0RF carbidopa-levodopa [Sinemet] 25-100 mg Tablet 0.5 tab PO TID Qty: 90 0RF Continued galantamine 12 mg tablet 12 mg PO BID lorazepam 0.5 mg tablet 0.5 mg PO QID Discharge Orders: Discharge Order (Routine); Ordered 07/28/22 Ordered By: Artemio Harris Admission Data Admit Date/Time: 07/20/22 17:47 Attending Provider: Artemio Harris Admit Provider: Huan Falcon Primary Care Provider: PCP,NO Other Providers: Huan Falcon ; Asuncion Callejas ; Estelle Anna ; Jeb Spencer ; Kameron Mansfield ; Yadiel Carrillo ; Don Wilks ; Jaja Anaya ; Luis Martinez ; Marii Raymundo ; Kayleigh Pham ; Yan Fitzgerald ; Twan Hurley ; [place] ; Dixon Cabrera ; Dago Preston ; Angel Casey Other Interventions: Discharge Summary Assessment (RN) Last Done: 07/28/22 12:36 Coding Level of Care Code HOSP INP/OBS DISCH >30 MIN Diagnoses Aspiration pneumonia of right lower lobe due to vomit J69.0 Acute dehydration E86.0 Dementia F03.90 Major depressive disorder, recurrent episode, severe with catatonia F33.2; F06.1 Incomplete bladder emptying R33.9 Elevated TSH R79.89 Hypothyroidism E03.9 Adnexal cyst N94.9 Protein calorie malnutrition E46
== END 2022-07-28 13:45 | disposition home or self-care (01) | DRG 178 ==
LOC: ED 14:05 → SUATTDRO 17:47 → 2N 17:47